=== PATIENT | female | born 1955 | race Caucasian/White ===

== ENCOUNTER 2021-11-07 11:41 | Outpatient (REF) | payer OTHER, SELFPAY ==
[2021-11-07 14:12] LABS: Alanine Aminotransferase 15 U/L (0-31); Anion Gap 13 (12-20); Aspartate Amino Transferase 14 U/L (5-31); Blood Urea Nitrogen 12 mg/dL (9-16); Calcium 9.9 mg/dL (8.4-10.2); Carbon Dioxide 28 mmol/L (22-29); Chloride 104 mmol/L (96-108); Cholesterol 230 mg/dL; Estimated Glomerular Filt Rate 56; Glucose Fasting 111 mg/dL (60-99); HDL Cholesterol 45 mg/dL; LDL Cholesterol Calculated 165 mg/dl; Potassium 4.9 mmol/L (3.3-5.1); Sodium 140 mmol/L (135-145); Triglycerides 104 mg/dL
[2021-11-07 14:34] LABS: Vitamin D 25-OH Total 39.3 ng/mL (>30)
== END 2021-11-07 11:42 | disposition home or self-care (01) ==
LOC: HO.HMGCLDS 11:41
PROVIDERS: PCP Internal Medicine; Visit Provider Internal Medicine
DX: Z00.01 Encounter for general adult medical examination with abnormal findings (principal); M85.852 Other specified disorders of bone density and structure, left thigh; E78.5 Hyperlipidemia, unspecified; I10 Essential (primary) hypertension
CPT/HCPCS: 36415; 80048; 80061; 82306; 84450; 84460

== ENCOUNTER 2022-03-04 09:32 | Outpatient (REF) | payer MEDICARE, OTHER, SELFPAY ==
[2022-03-04 12:46] LABS: Vitamin D 25-OH Total 51.4 ng/mL (>30)
[2022-03-04 12:54] LABS: Alanine Aminotransferase 14 U/L (0-31); Anion Gap 11 (12-20); Aspartate Amino Transferase 13 U/L (5-31); Blood Urea Nitrogen 13 mg/dL (9-16); Calcium 9.2 mg/dL (8.4-10.2); Carbon Dioxide 27 mmol/L (22-29); Chloride 108 mmol/L (96-108); Cholesterol 213 mg/dL; Estimated Glomerular Filt Rate > 60; Glucose Fasting 113 mg/dL (60-99); HDL Cholesterol 38 mg/dL; LDL Cholesterol Calculated 152 mg/dl; Potassium 4.4 mmol/L (3.3-5.1); Sodium 142 mmol/L (135-145); Triglycerides 115 mg/dL
== END 2022-03-04 09:33 | disposition home or self-care (01) ==
LOC: HO.HMGCLDS 09:32
PROVIDERS: PCP Internal Medicine; Visit Provider Internal Medicine
DX: I10 Essential (primary) hypertension (principal); E78.5 Hyperlipidemia, unspecified; M85.852 Other specified disorders of bone density and structure, left thigh
CPT/HCPCS: 36415; 80048; 80061; 82306; 84450; 84460

== ENCOUNTER 2022-09-09 10:47 | Outpatient (REF) | payer MEDICARE, OTHER, SELFPAY ==
[2022-09-09 14:04] LABS: Estimated Average Glucose 123 mg/dL; Hemoglobin A1c % 5.9 %
[2022-09-09 14:13] LABS: Alanine Aminotransferase 23 U/L (0-31); Anion Gap 16 (12-20); Aspartate Amino Transferase 17 U/L (5-31); Blood Urea Nitrogen 12 mg/dL (9-16); Calcium 9.4 mg/dL (8.4-10.2); Carbon Dioxide 26 mmol/L (22-29); Chloride 104 mmol/L (96-108); Cholesterol 243 mg/dL; Estimated Glomerular Filt Rate > 60; Glucose Fasting 115 mg/dL (60-99); HDL Cholesterol 42 mg/dL; LDL Cholesterol Calculated 172 mg/dl; Sodium 142 mmol/L (135-145); Triglycerides 148 mg/dL
[2022-09-09 14:35] LABS: Vitamin D 25-OH Total 58.3 ng/mL (>30)
== END 2022-09-09 10:48 | disposition home or self-care (01) ==
LOC: HO.HMGCLDS 10:47
PROVIDERS: PCP Internal Medicine; Visit Provider Internal Medicine
DX: E78.5 Hyperlipidemia, unspecified (principal); F41.1 Generalized anxiety disorder; I10 Essential (primary) hypertension; M85.852 Other specified disorders of bone density and structure, left thigh; N95.9 Unspecified menopausal and perimenopausal disorder
CPT/HCPCS: 36415; 80048; 80061; 82306; 83036; 84450; 84460

== ENCOUNTER 2022-12-19 09:10 | Outpatient (REF) | payer MEDICARE, OTHER, SELFPAY ==
[2022-12-19 11:45] LABS: Alanine Aminotransferase 16 U/L (0-31); Aspartate Amino Transferase 14 U/L (5-31); Cholesterol 187 mg/dL; Glucose Fasting 124 mg/dL (60-99); HDL Cholesterol 39 mg/dL; LDL Cholesterol Calculated 128 mg/dl; Triglycerides 101 mg/dL
[2022-12-19 11:50] LABS: Estimated Average Glucose 123 mg/dL; Hemoglobin A1c % 5.9 %
== END 2022-12-19 09:11 | disposition home or self-care (01) ==
LOC: HO.HMGCLDS 09:10
PROVIDERS: PCP Internal Medicine; Visit Provider Internal Medicine
DX: E78.5 Hyperlipidemia, unspecified (principal); R73.01 Impaired fasting glucose; I10 Essential (primary) hypertension
CPT/HCPCS: 36415; 80061; 82550; 82947; 83036; 84450; 84460

== ENCOUNTER 2023-02-07 10:16 | Outpatient (REF) | payer MEDICARE, OTHER, SELFPAY ==
--- NOTE | ~2023-02-07 | FL_ITS ---
EXAMINATION: XR FLUOROSCOPY UPPER GI WITH AIR CLINICAL INFORMATION: Epigastric pain COMPARISON: None TECHNIQUE: Routine upper GI air-contrast study was performed in upright and lying position. FINDINGS: On oral administration of thick barium and effervescents granules is normal propagation bolus from the oral cavity through the pharynx, esophagus into stomach without any evidence of obstruction, narrowing or stricture. On placing patient supine and prone lying the course, caliber and peristalsis of the stomach, duodenal bulb and sweep is normal. The mucosal pattern of the stomach and the duodenum is normal. There is no gastroesophageal reflux or hiatal hernia. FLUOROSCOPY TIME: 1.9 minutes DOSE AREA PRODUCT: 27.630 uGy-m2 (microgray-meter squared) FL/FL upper GI w air IMPRESSION: Unremarkable upper GI exam.
== END 2023-02-07 10:17 | disposition home or self-care (01) ==
LOC: HO.XRAY 10:16
PROVIDERS: PCP Internal Medicine; Visit Provider Internal Medicine
DX: R10.13 Epigastric pain (principal)
CPT/HCPCS: 74246

== ENCOUNTER 2023-04-18 09:49 | Outpatient (REF) | payer MEDICARE, OTHER, SELFPAY ==
[2023-04-18 11:49] LABS: MANUAL DIFF FLAG NO
[2023-04-18 11:59] LABS: Basophils Absolute Auto 0.1 X10*3/uL (0.0-0.2); Eosinophils Absolute Auto 0.8 X10*3/uL (0.0-0.4); Eosinophils Percent Auto 11.1 % (0-4); Hemoglobin 14.7 g/dl (12.0-16.0); Imm Gran Abs Auto 0.02 X10*3/uL (0.00-0.03); Imm Gran Pct Auto 0.3 % (0.0-0.4); Lymphocytes Absolute Auto 1.7 X10*3/uL (1.2-4.9); Mean Corpuscular HGB Conc 32.7 g/dl (31.0-35.0); Mean Corpuscular Hemoglobin 27.4 pg (27.0-33.0); Mean Corpuscular Volume 83.8 fL (80.0-98.0); Mean Platelet Volume 10.8 fL (9.4-12.3); Monocytes Absolute Auto 0.7 X10*3/uL (0.1-1.2); Monocytes Percent Auto 10.1 % (2-11); Neutrophils Absolute Auto 3.8 x10*3/uL (2.0-8.3); Neutrophils Percent Auto 53.5 % (45-73); Platelet Count 263 X10*3/uL (160-400); Red Blood Count 5.37 X10*6/uL (4.20-5.50); Red Cell Distribution Width 15.6 % (11.0-16.0)
[2023-04-18 12:22] LABS: Alanine Aminotransferase 16 U/L (0-31); Anion Gap 13 (12-20); Aspartate Amino Transferase 16 U/L (5-31); Blood Urea Nitrogen 12 mg/dL (9-16); Calcium 9.6 mg/dL (8.4-10.2); Carbon Dioxide 28 mmol/L (22-29); Chloride 106 mmol/L (96-108); Cholesterol 194 mg/dL; Estimated Glomerular Filt Rate > 60; Glucose Fasting 110 mg/dL (60-99); HDL Cholesterol 40 mg/dL; LDL Cholesterol Calculated 132 mg/dl; Potassium 4.2 mmol/L (3.3-5.1); Sodium 143 mmol/L (135-145); Triglycerides 113 mg/dL
[2023-04-18 12:41] LABS: Vitamin D 25-OH Total 64.7 ng/mL (>30)
== END 2023-04-18 09:50 | disposition home or self-care (01) ==
LOC: HO.HMGCLDS 09:49
PROVIDERS: PCP Internal Medicine; Visit Provider Internal Medicine
DX: R10.13 Epigastric pain (principal); E78.5 Hyperlipidemia, unspecified; F41.1 Generalized anxiety disorder; I10 Essential (primary) hypertension; J30.89 Other allergic rhinitis; Z72.0 Tobacco use
CPT/HCPCS: 36415; 80048; 80061; 82306; 84450; 84460; 85025

== ENCOUNTER 2023-08-19 14:22 | Outpatient (AMB) | payer MEDICARE, OTHER, SELFPAY ==
[2023-08-19 14:58] VITALS: BP 126/78; PULSE 71; TEMP 36.2; O2SAT 96; BMI 27.9
--- NOTE | 2023-08-19 14:58 | MHC.OFFWIV ---
Intake Vital Signs 08/19/23 14:58 Height 4 ft 11 in Weight 138 lb BMI 27.9 BP 126/78 Blood Pressure Location Rt brachial Position Sitting Pulse 71 Pulse Source Pulse Oximeter Temp 97.2 F Temp Source Temporal Artery Scan Pulse Oximetry (%) 96 Intake Visit Reasons: EST/left side pain Intake Note: pt is here for c/o left side pain Patient Tobacco Use Status: Current everyday Tobacco user Allergies morphine Allergy (Unknown, Verified 08/19/23 15:24) itchy Medication List - Last Reconciled 08/19/23 by Humberto Fuentes MD calcium carbonate (Calcium) 600 mg PO BID cetirizine 10 mg PO DAILY PRN cholecalciferol (vitamin D3) 50 mcg PO DAILY citalopram 20 mg PO DAILY famotidine 40 mg PO DAILY lorazepam 0.5 mg PO DAILY PRN losartan 25 mg PO DAILY rosuvastatin (Crestor) 5 mg PO Q2D 90 days Do you need a note to return to daycare/school/sports/work: Yes HPI EST/left side pain HPI Details 67-year-old female presents to the office for a sick visit. Patient is complaining of back pain which started 2 days ago. Pain is localized on the left side of her ribs. No fall or injury. [facility] Medical History (Updated 08/19/23 @ 15:26 by Humberto Fuentes MD) Impaired fasting glucose Epigastric pain Abnormal fasting glucose Cigarette smoker Cough Osteoarthritis Generalized anxiety disorder Not ready to quit smoking Osteopenia of left femoral neck Environmental and seasonal allergies Dyslipidemia Essential hypertension Surgical History Hx of colonoscopy History of appendectomy History of section History of rotator cuff surgery Family History Father History of heart attack Substance use disorder Mother Brain cancer Brother Lung cancer Maternal Uncle Stomach cancer Brother No problems noted. Brother No problems noted. Brother Substance use disorder Son No problems noted. Daughter No problems noted. Social History Housing: House Alcohol intake: current Patient Tobacco Use Status: Current everyday Tobacco user Tobacco use type: Cigarette Cigarettes Per Day: 10 e-Cigarette/Vaping Use: Never Used service: No Current occupational status: retired Cognitive needs: No Hearing needs: No Vision needs: No Physical Exam Vital Signs: Last Vital Signs Temp 97.2 F 08/19/23 14:58 Pulse 71 08/19/23 14:58 BP 126/78 08/19/23 14:58 Pulse Ox 96 08/19/23 14:58 BMI result Body Mass Index 27.9 Const General: cooperative and healthy appearing Nutritional Appearance: well nourished Orientation/consciousness: patient oriented x3 Limitations: no limitations HEENT Head: Yes normal to inspection Eyes General: appearance normal, both eyes and all related structures Neck Neck: Yes normal visual inspection Chest Chest palpation & inspection: normal palpation of entire chest wall Resp Effort & Inspection: normal respiratory effort Auscultation: clear to auscultation bilaterally Back/Spine/Pelvis Other: Tenderness over the 12th rib. No visible bruising. Neuro General: patient oriented x3 Assessment & Plan Assessment & Plan (1) Lower thoracic back pain: Code(s): M54.6 - Pain in thoracic spine Plan: Meloxicam and cyclobenzaprine called in. Toradol injection provided. Patient was advised rest. Note for work if necessary provided. Once pain symptoms subside, patient should start physical therapy. If symptoms worsen to follow-up here. Orders: Orders AMB Ketorolac Injection Today M54.50 - Low back pain, unspecified Medications: New ketorolac 30 mg IM ONCE 1 mL 0RF M54.50 - Low back pain, unspecified Coding Level of Care Code Est Pt Level 4 (23207) Diagnoses Lower thoracic back pain M54.6
== END 2023-08-19 15:37 | disposition home or self-care (01) ==
PROVIDERS: PCP Internal Medicine; Visit Provider Internal Medicine
DX: M54.6 Pain in thoracic spine (principal)
CPT/HCPCS: 96372; 99214; J1885

== ENCOUNTER 2023-10-27 10:26 | Outpatient (REF) | payer MEDICARE, OTHER, SELFPAY ==
[2023-10-27 13:49] LABS: Estimated Average Glucose 123 mg/dL; Hemoglobin A1c % 5.9 % (<6.0)
[2023-10-27 14:09] LABS: Alanine Aminotransferase 16 U/L (0-31); Anion Gap 13 (12-20); Aspartate Amino Transferase 15 U/L (5-31); Blood Urea Nitrogen 13 mg/dL (9-16); Carbon Dioxide 25 mmol/L (22-29); Chloride 107 mmol/L (96-108); Cholesterol 191 mg/dL (<200); Estimated Glomerular Filt Rate > 60; Glucose Fasting 119 mg/dL (60-99); HDL Cholesterol 44 mg/dL (>40); LDL Cholesterol Calculated 128 mg/dL (<100); Potassium 3.9 mmol/L (3.3-5.1); Sodium 141 mmol/L (135-145); Triglycerides 99 mg/dL (<150)
== END 2023-10-27 10:27 | disposition home or self-care (01) ==
LOC: HO.HMGCLDS 10:26
PROVIDERS: PCP Internal Medicine; Visit Provider Internal Medicine
DX: R73.01 Impaired fasting glucose (principal); E78.5 Hyperlipidemia, unspecified; I10 Essential (primary) hypertension
CPT/HCPCS: 36415; 80048; 80061; 83036; 84450; 84460

== ENCOUNTER 2023-10-28 09:23 | Outpatient (AMB) | payer MEDICARE, OTHER, SELFPAY ==
[2023-10-28 09:43] VITALS: BP 156/88; PULSE 63; O2SAT 95; BMI 28.8
--- NOTE | 2023-10-28 09:43 | MHC.PC.OV ---
Vital Signs 10/28/23 09:43 Height 4 ft 11 in Weight 142 lb 6 oz BMI 28.8 BP 156/88 H Blood Pressure Location Lt brachial Position Sitting Pulse 63 Pulse Source Pulse Oximeter Pulse Oximetry (%) 95 Oxygen Delivery Method Room Air Intake Visit Reasons: Annual Physical Intake Note: pt is here for her Annual PE pt will get flu at [facility] Allergies morphine Allergy (Unknown, Verified 02/26/24 15:22) itchy Medication List - Last Reconciled 10/28/23 by Rosina Martínez MD calcium carbonate (Calcium) 600 mg PO BID cetirizine 10 mg PO DAILY PRN cholecalciferol (vitamin D3) 50 mcg PO DAILY citalopram 20 mg PO DAILY famotidine 40 mg PO DAILY lorazepam 0.5 mg PO DAILY PRN losartan 25 mg PO DAILY rosuvastatin (Crestor) 5 mg PO Q2D 90 days Tobacco use date assessed: 10/28/23 Fall risk assessment: No Falls in past year Last assessed Fall Risk: 10/28/23 Dental Screening Dental Screen Date: 10/28/23 Did you have a dental visit in the last 12 months?: Yes Did you have a dental problem in the last 6 months where you did not have access to dental care?: No Was dental information given to patient?: Patient has dentist HPI Annual Physical HPI Details 67-year-old lady with dyslipidemia, hypertension, osteoarthritis, generalized anxiety disorder, environmental and seasonal allergies, current cigarette smoker and osteopenia, here today for her physical exam. She sees Dr. Chloe Norton for her routine Pap and pelvic exam, done 12/27/2021, she also ordered her screening mammogram, done earlier this year at [facility] which came back within normal limits. A bone density scan was also ordered last year, with results unavailable to me at present time. She is up-to-date with her screening colonoscopy done in [address] Nicole , due for recheck in 2024 [facility] Medical History Impaired fasting glucose Epigastric pain Cigarette smoker Osteoarthritis Generalized anxiety disorder Not ready to quit smoking Osteopenia of left femoral neck Environmental and seasonal allergies Dyslipidemia Essential hypertension Surgical History Hx of colonoscopy History of appendectomy History of section History of rotator cuff surgery Family History Father History of heart attack Substance use disorder Mother Brain cancer Brother Lung cancer Maternal Uncle Stomach cancer Brother No problems noted. Brother No problems noted. Brother Substance use disorder Son No problems noted. Daughter No problems noted. Social History Housing: House Alcohol intake: current Patient Tobacco Use Status: Current everyday Tobacco user Tobacco use type: Cigarette Cigarettes Per Day: 10 e-Cigarette/Vaping Use: Never Used Second Hand Smoke Exposure: No service: No Current occupational status: retired Cognitive needs: No Hearing needs: No Vision needs: No Questionnaire PHQ-9 Over the last 2 weeks, how often have you been bothered by any of the following problems? Depression Screening Interpretation: Negative Depression Screening Done: Yes Source: Developed by Drs. Peng Espinosa, Ivette Holley, Norbert Bella and colleagues, with an educational carlos from [employer]. Thrive Questionnaire Date Thrive assessed: 12/20/22 AUDIT C Alcohol Use Questionnaire (AUDIT-C) 1. How often do you have a drink containing alcohol?: Never Total Score: 0 ITALO-7 AMB Questionnaire ITALO-7 Date ITALO - 7 assessed: 12/20/22 Source: Developed by Drs. Peng Espinosa, Ivette Holley, Norbert Bella and colleagues, with an educational carlos from [employer]. Review of Systems Const Denies fatigue, Denies fever(s) and Denies weakness Eyes Details: sees Dr Horton Denies change in vision ENT Denies dysphagia, Denies dizziness, Denies nasal congestion, Denies nasal discharge and Denies sore throat Card Denies chest pain, Denies lightheadedness, Denies palpitations and Denies dyspnea Resp Denies chest congestion, Denies cough and Denies dyspnea GI Denies melena, Reports bloating, Denies hematochezia, Denies change in bowel habits, Denies dysphagia, Reports excessive flatus, Reports dyspepsia, Denies nausea and Denies vomiting Denies urinary frequency, Denies dysuria, Reports urinary incontinence (With coughing or sneezing) and Denies urinary urgency Musc Reports arthralgias (In the knees), Denies joint swelling and Reports stiffness Neuro Denies dizziness and Denies weakness Psych Reports as per HPI Endo Denies fatigue, Denies polydipsia, Denies polyuria and Denies palpitations Nicholas/Lymph Denies easy bleeding and Denies easy bruising Aller/Immun Reports seasonal rhinorrhea Physical exam (Primary Care) Vital Signs: Last Vital Signs Pulse 63 10/28/23 09:43 BP 156/88 H 10/28/23 09:43 Pulse Ox 95 10/28/23 09:43 Oxygen Delivery Method Room Air 10/28/23 09:43 BMI result Body Mass Index 28.8 Tobacco/Smoking Status: Tobacco use Status Tobacco use date assessed 10/28/23 10/28/23 09:47 Patient Tobacco Use Status Current everyday Tobacco 10/28/23 09:47 Tobacco use type Cigarette 10/28/23 09:47 e-Cigarette/Vaping Use Never Used 10/28/23 09:47 Are you ready to quit: No Depression Screening Interpretation: Negative Thrive Assessment: Date of Thrive Assessment Date Thrive assessed 12/20/22 10/28/23 09:47 Const Other: Alert oriented x3, no acute distress noted Orientation/consciousness: patient oriented x3 HENMT Other: Moist oral mucosa, no oral lesion General nose exam: Normal external nose present and No nasal discharge present Face and sinus: Yes face symmetric Eyes General: appearance normal, both eyes and all related structures Neck Neck: Yes full ROM, Yes no lymphadenopathy and Yes supple Resp Auscultation: clear to auscultation bilaterally Cardio Other: S1-S2 present regular rate and rhythm GI Other: Normal bowel sounds, soft, obese, positive diastasis recti, nontender Back/Spine/Pelvis Back: No back tenderness Skin General skin exam: no rashes or lesions noted Neuro General: patient oriented x3, gait normal, moves all extremities, no focal motor deficits and CN's II-XI intact bilaterally Extrem General: Yes full ROM, Yes no joint enlargement, Yes no pedal edema and Yes normal gait Psych Appearance: grossly normal and well kempt Mental Status: mental status grossly normal Speech and movement: Normal speech and movement present Affect: normal affect Attitude: cooperative Thought process: Normal thought process present Results Reviewed Results Reviewed: Name: Laney Young Age/Sex: 67/F : 1955 Unit#: [id number] Attend Dr: Rosina Martínez MD Re10/27/23 Status: DEP REF Location: [facility] Disch: SPEC : [id number] GABE: 10/27/23 STATUS: COMP REQ : [id number] RECD: 10/27/[address]: Rosina Martínez MD COMP: 10/27/23 ENTERED: 10/27/23 [facility] DR: ORDERED: Met Prof Fast, AST, ALT, Lipid Panel Test Result Flag Reference Site Sodium 141 135-145 mmol/L Potassium 3.9 3.3-5.1 mmol/L CL 107 96-108 mmol/L CO2 25 22-29 mmol/L Gap 13 12-20 BUN 13 9-16 mg/dL Creat 0.86 0.5-1.4 mg/dL EGFR > 60 NOTE: For -[place] individuals, multiply the result by 1.210. Chronic Kidney Disease: Estimated GFR < 60 mL/min/1.73m2 Severe Kidney Disease: Estimated GFR < 15 mL/min/1.73m2 FBS 119 H 60-99 mg/dL A fasting glucose from 100-125 mg/dl is considered impaired (pre-diabetes). CA 9.0 # 8.4-10.2 mg/dL AST (GOT) 15 5-31 U/L ALT (GPT) 16 0-31 U/L Triglyceride 99 <150 mg/dL Desirable Triglyceride: less than 150 mg/dL Borderline High Triglyceride 150-199 mg/dL High Triglyceride: 200-499 mg/dL Very High Triglyceride: greater than or equal to 5OO mg/dL Cholesterol 191 <200 mg/dL Desirable Cholesterol: less than 200 mg/dL Borderline High Cholesterol: 200-239 mg/dL High Cholesterol: greater than 239 mg/dL LDL Calculated 128 H <100 mg/dL Desirable LDL: less than 100 mg/dL Near Optimal/Above Optimal LDL: 110-129 mg/dL Borderline High LDL: 130-159 mg/dL High LDL: 160-189 mg/dL Very High LDL: greater than or equal to 190 mg/dL HDL 44 >40 mg/dL Desirable HDL: greater than 40 mg/dL Note: This HDL assay may give artificially low results in patients with liver disease. Laboratory Tests 04/18/23 09:53 WBC 7.0 Hgb 14.7 Hct 45.0 RDW 15.6 Plt Count 263 Assessment and Plan Assessment & Plan (1) Annual visit for general adult medical examination with abnormal findings: Code(s): Z00.01 - Encounter for general adult medical examination with abnormal findings Plan: . Recent fasting lab results discussed with patient. Continue with regular dental visit every 6 months and regular eye exams, sees Dr. Stefani Horton. Take adequate calcium in diet and vitamin-D 3 at 2000 IU per cap once a day, in addition to weight-bearing exercises to help maintain good muscle tone and weight control. Instructed to do self-breast exam, and continue to get yearly mammogram, ordered by Dr. Norton. , who also does her routine Pap and pelvic exams, currently up-to-date. Patient also had a bone density scan ordered by her OB, will obtain a copy of result. Up-to-date with her screening colonoscopy, done by Dr. Nicole , due again in 2024. Does not want to get COVID booster, has an appointment for her flu shot at the pharmacy already scheduled. Up-to-date with her pneumonia vaccination and shingles vaccine as well as Tdap. (2) Dyslipidemia: Code(s): E78.5 - Hyperlipidemia, unspecified Plan: Reviewed recent fasting lipid profile with patient with levels at goal except for slightly elevated LDL cholesterol . Continue with rosuvastatin 5 mg every other day , in addition to adherence to low-cholesterol diet and regular exercise, at least 30 minutes 3 to 4 times a week. Advised patient to make healthy food choices, eat more fruits, vegetables, whole grains, wild caught fish and low-fat dairy. Limit amount of meat and fried or fatty food products, as well as processed foods and fast foods. Follow-up scheduled with repeat fasting lipid panel in 4 months. (3) Essential hypertension: Code(s): I10 - Essential (primary) hypertension Plan: Blood pressure not at goal of less than 130/80. Will increase dose of losartan to 50 mg taken once a day in a.m., strongly encouraged to stop smoking. Adhere to low-salt diet and get regular exercise. Will have her come back in a week to have her blood pressure checked under new medication dose (4) Osteopenia of left femoral neck: Code(s): M85.852 - Other specified disorders of bone density and structure, left thigh Plan: Will request copy of bone density scan from Dr. Norton's office, advised to do regular weight-bearing exercise, take adequate calcium from dietary sources and take at least 2000 units of vitamin-D 3 supplements, last vitamin-D levels within normal limits. Strongly recommended to stop smoking (5) Generalized anxiety disorder: Code(s): F41.1 - Generalized anxiety disorder Plan: Stable and controlled on citalopram and lorazepam as needed (6) Osteoarthritis: Code(s): M19.90 - Unspecified osteoarthritis, unspecified site Qualifiers: Osteoarthritis location: multiple joints Plan: Advised to do regular stretch exercise, unable to walk for long distances due to pain and stiffness in her hip and knee. Advised to try joining the aquatic exercises at the [facility]. (7) Impaired fasting glucose: Code(s): R73.01 - Impaired fasting glucose Plan: Your fasting blood sugars elevated above 100 mg/dL. Hemoglobin A1c is at 5.9% peer Impaired glucose metabolism O2 at risk for developing diabetes mellitus type 2, as well as heart attack and stroke later on. Lifestyle changes at just weight loss, healthy eating habits, and regular exercise are important, and can prevent the progression to diabetes Orders: Orders Aspartate Amino Transferase 03/01/24 M19.90 - Unspecified osteoarthritis, unspecified site, F41.1 - Generalized anxiety disorder, M85.852 - Other specified disorders of bone density and structure, left thigh, E78.5 - Hyperlipidemia, unspecified, I10 - Essential (primary) hypertension, Z78.0 - Asymptomatic menopausal state Hemoglobin A1c 03/01/24 M19.90 - Unspecified osteoarthritis, unspecified site, F41.1 - Generalized anxiety disorder, M85.852 - Other specified disorders of bone density and structure, left thigh, E78.5 - Hyperlipidemia, unspecified, I10 - Essential (primary) hypertension, Z78.0 - Asymptomatic menopausal state Vitamin D 25-OH Total 03/01/24 M19.90 - Unspecified osteoarthritis, unspecified site, F41.1 - Generalized anxiety disorder, M85.852 - Other specified disorders of bone density and structure, left thigh, E78.5 - Hyperlipidemia, unspecified, I10 - Essential (primary) hypertension, Z78.0 - Asymptomatic menopausal state Lipid Panel 03/01/24 M19.90 - Unspecified osteoarthritis, unspecified site, F41.1 - Generalized anxiety disorder, M85.852 - Other specified disorders of bone density and structure, left thigh, E78.5 - Hyperlipidemia, unspecified, I10 - Essential (primary) hypertension, Z78.0 - Asymptomatic menopausal state Alanine Aminotransferase 03/01/24 M19.90 - Unspecified osteoarthritis, unspecified site, F41.1 - Generalized anxiety disorder, M85.852 - Other specified disorders of bone density and structure, left thigh, E78.5 - Hyperlipidemia, unspecified, I10 - Essential (primary) hypertension, Z78.0 - Asymptomatic menopausal state Basic Metabolic Panel Fasting 03/01/24 M19.90 - Unspecified osteoarthritis, unspecified site, F41.1 - Generalized anxiety disorder, M85.852 - Other specified disorders of bone density and structure, left thigh, E78.5 - Hyperlipidemia, unspecified, I10 - Essential (primary) hypertension, Z78.0 - Asymptomatic menopausal state Medications: Changed From losartan 25 mg PO DAILY 90 tabs 1RF To losartan 50 mg PO DAILY 90 tabs 2RF Refilled lorazepam 0.5 mg PO DAILY PRN 14 tabs 0RF anxiety Coding Level of Care Code Est Pt Prev Care >65y(82136) Diagnoses Annual visit for general adult medical examination with abnormal findings Z00.01 Dyslipidemia E78.5 Essential hypertension I10 Osteopenia of left femoral neck M85.852 Generalized anxiety disorder F41.1 Osteoarthritis M1. Osteoarthritis location: multiple joints Impaired fasting glucose R73.01
== END 2023-10-28 12:07 | disposition home or self-care (01) ==
PROVIDERS: Visit Provider Internal Medicine
DX: Z00.00 Encounter for general adult medical examination without abnormal findings (principal); E78.5 Hyperlipidemia, unspecified; I10 Essential (primary) hypertension; M85.852 Other specified disorders of bone density and structure, left thigh; F41.1 Generalized anxiety disorder; M19.90 Unspecified osteoarthritis, unspecified site; R73.01 Impaired fasting glucose
CPT/HCPCS: 99397

== ENCOUNTER 2024-02-23 11:36 | Outpatient (REF) | payer MEDICARE, OTHER, SELFPAY ==
[2024-02-23 14:11] LABS: Estimated Average Glucose 128 mg/dL; Hemoglobin A1c % 6.1 % (<6.0)
[2024-02-23 14:18] LABS: Alanine Aminotransferase 15 U/L (0-31); Anion Gap 11 (12-20); Aspartate Amino Transferase 13 U/L (5-31); Blood Urea Nitrogen 18 mg/dL (9-16); Calcium 9.7 mg/dL (8.4-10.2); Carbon Dioxide 29 mmol/L (22-29); Chloride 106 mmol/L (96-108); Cholesterol 191 mg/dL (<200); Estimated Glomerular Filt Rate > 60; Glucose Fasting 109 mg/dL (60-99); HDL Cholesterol 44 mg/dL (>40); LDL Cholesterol Calculated 125 mg/dL (<100); Potassium 3.8 mmol/L (3.3-5.1); Sodium 142 mmol/L (135-145); Triglycerides 112 mg/dL (<150)
[2024-02-23 14:32] LABS: Vitamin D 25-OH Total 91.8 ng/mL (>30)
== END 2024-02-23 11:37 | disposition home or self-care (01) ==
LOC: HO.HMGCLDS 11:36
PROVIDERS: PCP Internal Medicine; Visit Provider Internal Medicine
DX: M19.90 Unspecified osteoarthritis, unspecified site (principal); F41.1 Generalized anxiety disorder; M85.852 Other specified disorders of bone density and structure, left thigh; E78.5 Hyperlipidemia, unspecified; I10 Essential (primary) hypertension; Z78.0 Asymptomatic menopausal state
CPT/HCPCS: 36415; 80048; 80061; 82306; 83036; 84450; 84460

== ENCOUNTER 2024-02-26 10:23 | Outpatient (AMB) | payer MEDICARE, OTHER, SELFPAY ==
--- NOTE | 2024-02-26 10:25 | A.OFFPC_ITS ---
Vital Signs 02/26/24 10:39 Height 4 ft 11 in Weight 139 lb BMI 28.1 BP 138/84 Blood Pressure Location Rt brachial Position Sitting Pulse 69 Pulse Source Pulse Oximeter Pulse Oximetry (%) 94 Oxygen Delivery Method Room Air Intake Visit Reasons: 4 Month follow up Intake Note: Pt is here today for 4 Month follow up. Allergies morphine Allergy (Unknown, Verified 02/26/24 15:22) itchy Medication List - Last Reconciled 02/26/24 by Rosina Martínez MD calcium carbonate (Calcium) 600 mg PO BID cetirizine 10 mg PO DAILY PRN cholecalciferol (vitamin D3) 50 mcg PO DAILY citalopram 20 mg PO DAILY lorazepam 0.5 mg PO DAILY PRN losartan 50 mg PO DAILY rosuvastatin 5 mg PO DAILY Tobacco use date assessed: 02/26/24 Fall risk assessment: No Falls in past year Last assessed Fall Risk: 02/26/24 Dental Screening Dental Screen Date: 02/26/24 Did you have a dental visit in the last 12 months?: Yes Did you have a dental problem in the last 6 months where you did not have access to dental care?: No Was dental information given to patient?: Patient has dentist HPI 4 Month follow up HPI Details 68-year-old lady with hypertension hyper lipidemia currently on losartan and rosuvastatin, compliant with taking her medications, here today for her follow-up. However continues to smoke cigarettes, not ready to quit smoking. States that she has gained some weight, not fully compliant with her diet this past few months, and has not been exercising regularly. Her blood pressure today is higher than last check, fasting glucose in the prediabetic range, but fasting lipids are within normal limits on recent labs drawn. . Has generalized anxiety disorder, currently on escitalopram 20 mg daily, which has been helping but has been getting more frequent anxiety attacks specially at night with difficulty sleeping like a refill on her lorazepam which she takes only as needed for acute anxiety. [facility] Medical History Impaired fasting glucose Epigastric pain Cigarette smoker Osteoarthritis Generalized anxiety disorder Not ready to quit smoking Osteopenia of left femoral neck Environmental and seasonal allergies Dyslipidemia Essential hypertension Surgical History Hx of colonoscopy History of appendectomy History of section History of rotator cuff surgery Family History Father History of heart attack Substance use disorder Mother Brain cancer Brother Lung cancer Maternal Uncle Stomach cancer Brother No problems noted. Brother No problems noted. Brother Substance use disorder Son No problems noted. Daughter No problems noted. Social History Housing: House Alcohol intake: current Patient Tobacco Use Status: Current everyday Tobacco user Tobacco use type: Cigarette Cigarettes Per Day: 10 e-Cigarette/Vaping Use: Never Used Second Hand Smoke Exposure: No service: No Current occupational status: retired Cognitive needs: No Hearing needs: No Vision needs: No Questionnaire PHQ-9 Over the last 2 weeks, how often have you been bothered by any of the following problems? 1. Little interest or pleasure in doing things: not at all 2. Feeling down, depressed, or hopeless: not at all 3. Trouble falling or staying asleep, or sleeping too much: more than half the days 4. Feeling tired or having little energy: not at all 5. Poor appetite or overeating: not at all 6. Feeling bad about yourself - or that you are a failure or have let yourself or your family down: not at all 7. Trouble concentrating on things, such as reading the newspaper or watching television: not at all 8. Moving or speaking so slowly that other people could have noticed. Or the opposite - being so fidgety or restless that you have been moving around a lot more than usual: not at all 9. Thoughts that you would be better off or of hurting yourself in some way: not at all Total score: 2 Depression Screening Interpretation: Negative Depression Screening Done: Yes 86852 - PHQ-9 Billing: Yes Source: Developed by Drs. Peng Espinosa, Ivette Holley, Norbert Bella and colleagues, with an educational carlos from [employer]. Thrive Questionnaire Date Thrive assessed: 02/26/24 I am a: Patient What is your living situation today?: I have a steady place to live Within the past 12 months, did the food you bought not last and you didn't have the money to get more?: Never true Within the past 12 months, did you worry whether your food would run out before you got money to buy more?: Never true Do you have trouble paying for medicines?: No Do you have trouble getting transportation to medical appointments?: No Do you have trouble paying your heating and electricity bill?: No Do you have trouble taking care of your child, family member or friend?: No Do you have trouble with day-to-day activities such as bathing, preparing meals, shopping, managing finances, etc.?: No Are you currently unemployed and looking for a job?: No Are you interested in more education?: No THRIVE Score: 0 AUDIT C Alcohol Use Questionnaire (AUDIT-C) 1. How often do you have a drink containing alcohol?: Monthly or less 2. How many drinks containing alcohol do you have on a typical day when you are drinking?: 1 or 2 3. How often do you have six or more drinks on one occasion?: Never Total Score: 1 Score Reviewed/Action Taken: Yes ITALO-7 AMB Questionnaire ITALO-7 Date ITALO - 7 assessed: 02/26/24 Feeling nervous, anxious, or on edge: 1 = Several days Not being able to stop or control worryin = Several days Worrying too much about different things: 1 = Several days Trouble relaxin = Several days Being so restless that it is hard to sit still: 0 = Not at all Becoming easily annoyed or irritable: 0 = Not at all Feeling afraid as if something awful might happen: 0 = Not at all Total ITALO-7 score (0-4 normal; 5-9 mild; 10-14 moderate; 15-21 severe): 4 Source: Developed by Drs. Peng Espinosa, Ivette Holley, Norbert Bella and colleagues, with an educational carlos from [employer]. ITALO-7 Assessment Billing ITALO-7 Assessment Tool: ITALO-7 Assessment 80614 Review of Systems Const Denies fatigue, Denies fever(s) and Denies weakness Eyes Denies change in vision and Reports itchy eyes ENT Denies dysphagia, Denies dizziness, Denies nasal congestion, Denies nasal discharge and Denies sore throat Card Denies chest pain, Denies lightheadedness, Denies palpitations and Denies dyspnea Resp Denies chest congestion, Denies cough and Denies dyspnea GI Denies melena, Reports bloating, Denies hematochezia, Denies change in bowel habits, Denies dysphagia, Reports excessive flatus, Reports dyspepsia, Denies nausea and Denies vomiting Denies urinary frequency, Denies dysuria, Reports urinary incontinence (With coughing or sneezing) and Denies urinary urgency Musc Reports arthralgias (In the knees), Denies joint swelling and Reports stiffness Neuro Denies dizziness and Denies weakness Psych Reports as per HPI Endo Denies fatigue, Denies polydipsia, Denies polyuria and Denies palpitations Nicholas/Lymph Denies easy bleeding and Denies easy bruising Aller/Immun Reports itchy eyes and Reports seasonal rhinorrhea Physical exam (Primary Care) Vital Signs: Last Vital Signs Pulse 69 02/26/24 10:39 BP 138/84 02/26/24 10:39 Pulse Ox 94 02/26/24 10:39 Oxygen Delivery Method Room Air 02/26/24 10:39 BMI result Body Mass Index 28.1 Tobacco/Smoking Status: Tobacco use Status Tobacco use date assessed 02/26/24 02/26/24 10:27 Patient Tobacco Use Status Current everyday Tobacco 02/26/24 10:27 Tobacco use type Cigarette 02/26/24 10:27 e-Cigarette/Vaping Use Never Used 02/26/24 10:27 Are you ready to quit: No Depression Screening Interpretation: Negative Thrive Assessment: Date of Thrive Assessment Date Thrive assessed 12/20/22 02/26/24 10:27 Const Other: Alert oriented x3, no acute distress noted Orientation/consciousness: patient oriented x3 HENMT Other: Moist oral mucosa, no oral lesion General nose exam: Normal external nose present and No nasal discharge present Face and sinus: Yes face symmetric Eyes General: appearance normal, both eyes and all related structures Neck Neck: Yes full ROM, Yes no lymphadenopathy and Yes supple Resp Auscultation: clear to auscultation bilaterally Cardio Other: S1-S2 present regular rate and rhythm GI Other: Normal bowel sounds, soft, obese, positive diastasis recti, nontender Back/Spine/Pelvis Back: No back tenderness Skin General skin exam: no rashes or lesions noted Neuro General: patient oriented x3, gait normal, moves all extremities, no focal motor deficits and CN's II-XI intact bilaterally Extrem General: Yes full ROM, Yes no joint enlargement, Yes no pedal edema and Yes normal gait Psych Appearance: grossly normal and well kempt Mental Status: mental status grossly normal Speech and movement: Normal speech and movement present Affect: normal affect Attitude: cooperative Thought process: Normal thought process present Results Reviewed Results Reviewed: Name: Laney Young Age/Sex: 68/F : 1955 Unit#: [id number] Attend Dr: Rosina Martínez MD Re02/23/24 Status: DEP [facility] Disch: SPEC : [id number] GABE: 02/23/24 STATUS: COMP REQ : [id number] RECD: 02/23/24-[address]: Rosina Martínez MD COMP: 02/23/24 ENTERED: 02/23/[address]: ORDERED: Met Prof Fast, AST, ALT, Lipid Panel, Vitamin D 25-OH Test Result Flag Reference Sodium 142 135-145 mmol/L Potassium 3.8 3.3-5.1 mmol/L CL 106 96-108 mmol/L CO2 29 22-29 mmol/L Gap 11 L 12-20 BUN 18 H 9-16 mg/dL Creat 0.88 0.5-1.4 mg/dL EGFR > 60 NOTE: For -Citizen Of [place] individuals, multiply the result by 1.210. Chronic Kidney Disease: Estimated GFR < 60 mL/min/1.73m2 Severe Kidney Disease: Estimated GFR < 15 mL/min/1.73m2 FBS 109 H 60-99 mg/dL A fasting glucose from 100-125 mg/dl is considered impaired (pre-diabetes). CA 9.7 # 8.4-10.2 mg/dL AST (GOT) 13 5-31 U/L ALT (GPT) 15 0-31 U/L Triglyceride 112 <150 mg/dL Desirable Triglyceride: less than 150 mg/dL Borderline High Triglyceride 150-199 mg/dL High Triglyceride: 200-499 mg/dL Very High Triglyceride: greater than or equal to 5OO mg/dL Cholesterol 191 <200 mg/dL Desirable Cholesterol: less than 200 mg/dL Borderline High Cholesterol: 200-239 mg/dL High Cholesterol: greater than 239 mg/dL LDL Calculated 125 H <100 mg/dL Desirable LDL: less than 100 mg/dL Near Optimal/Above Optimal LDL: 110-129 mg/dL Borderline High LDL: 130-159 mg/dL High LDL: 160-189 mg/dL Very High LDL: greater than or equal to 190 mg/dL HDL 44 >40 mg/dL Desirable HDL: greater than 40 mg/dL Note: This HDL assay may give artificially low results in patients with liver disease. Vit D 25-OH Tot 91.8 >30 ng/mL Health Based Reference Values* < 20 ng/mL Deficient 20-30 ng/mL Insufficient > 30 ng/mL Sufficient Assessment and Plan Assessment & Plan (1) Dyslipidemia: Code(s): E78.5 - Hyperlipidemia, unspecified Plan: Continue rosuvastatin 5 mg once a day. Reinforced importance of following low- cholesterol diet and getting at least 30 minutes of cardio exercise on daily basis (2) Essential hypertension: Code(s): I10 - Essential (primary) hypertension Plan: Blood pressure goal less than 130/80, will continue on losartan 50 mg once a day, and stressed importance of quitting smoking, following low-salt diet and getting regular exercise (3) Impaired fasting glucose: Code(s): R73.01 - Impaired fasting glucose Plan: Your fasting blood sugars elevated above 100 mg/dL. Impaired glucose metabolism increases your risk for developing diabetes mellitus type 2, as well as heart attack and stroke later on. Lifestyle changes at just weight loss, healthy eating habits, and regular exercise are important, and can prevent the progression to diabetes (4) Generalized anxiety disorder: Code(s): F41.1 - Generalized anxiety disorder Plan: Continue with citalopram 50 mg per tablet once a day in a.m., prescription refill sent for lorazepam 0.5 mg to take 1 tablet only as needed for acute anxiety attacks. Orders: Orders Aspartate Amino Transferase 08/01/24 E78.5 - Hyperlipidemia, unspecified, I10 - Essential (primary) hypertension Lipid Panel 08/01/24 E78.5 - Hyperlipidemia, unspecified, I10 - Essential (primary) hypertension Alanine Aminotransferase 08/01/24 E78.5 - Hyperlipidemia, unspecified, I10 - Essential (primary) hypertension Basic Metabolic Panel Fasting 08/01/24 E78.5 - Hyperlipidemia, unspecified, I10 - Essential (primary) hypertension Hemoglobin A1c 08/01/24 R73.01 - Impaired fasting glucose Medications: Refilled lorazepam 0.5 mg PO DAILY PRN 14 tabs 0RF anxiety Coding Level of Care Code Est Pt Level 4 (48688) Diagnoses Dyslipidemia E78.5 Essential hypertension I10 Impaired fasting glucose R73.01 Generalized anxiety disorder F41.1 Additional Codes ITALO-7 Assessment Billing - ITALO-7 Assessment Tool: ITALO-7 Assessment 70054 ([id number])
[2024-02-26 10:39] VITALS: BP 138/84; PULSE 69; O2SAT 94; BMI 28.1
== END 2024-02-26 12:21 | disposition home or self-care (01) ==
PROVIDERS: PCP Internal Medicine; Visit Provider Internal Medicine
DX: E78.5 Hyperlipidemia, unspecified (principal); I10 Essential (primary) hypertension; R73.01 Impaired fasting glucose; F41.1 Generalized anxiety disorder
CPT/HCPCS: 99214

== ENCOUNTER 2024-08-23 10:36 | Outpatient (AMB) | payer MEDICARE, OTHER, SELFPAY ==
[2024-08-23 10:56] VITALS: BP 136/76; PULSE 71; O2SAT 97; BMI 30.5
--- NOTE | 2024-08-23 10:56 | A.OFFPC_ITS ---
Vital Signs 08/23/24 10:56 Height 4 ft 8 in Weight 136 lb BMI 30.5 BP 136/76 Blood Pressure Location Rt brachial Position Sitting Pulse 71 Pulse Source Pulse Oximeter Pulse Oximetry (%) 97 Oxygen Delivery Method Room Air Intake Visit Reasons: Blood pressure f/u Intake Note: Pt is here today for her b/p follow-up Allergies morphine Allergy (Unknown, Verified 08/23/24 11:12) itchy Medication List - Last Reconciled 08/23/24 by Rosina Martínez MD calcium carbonate (Calcium 600) 600 mg PO BID cetirizine 10 mg PO DAILY PRN cholecalciferol (vitamin D3) 50 mcg PO DAILY citalopram 20 mg PO DAILY lorazepam 0.5 mg PO DAILY PRN losartan 50 mg PO DAILY rosuvastatin 5 mg PO DAILY Tobacco use date assessed: 08/23/24 Fall risk assessment: No Falls in past year Last assessed Fall Risk: 08/23/24 Dental Screening Dental Screen Date: 02/26/24 Did you have a dental visit in the last 12 months?: No Did you have a dental problem in the last 6 months where you did not have access to dental care?: No Was dental information given to patient?: Patient has dentist HPI Blood pressure f/u HPI Details 68-year-old lady here today for follow-up on her hypertension. Currently taking losartan 50 mg daily. Still continues to smoke cigarettes, down to half a pack a day, not ready to quit at present time Takes rosuvastatin 5 mg daily but has been experiencing intermittent episodes of muscle pain. Would like to see if she can try decreasing the dosing frequency to every other day. [facility] Medical History Impaired fasting glucose Epigastric pain Cigarette smoker Osteoarthritis Generalized anxiety disorder Not ready to quit smoking Osteopenia of left femoral neck Environmental and seasonal allergies Dyslipidemia Essential hypertension Surgical History Hx of colonoscopy History of appendectomy History of section History of rotator cuff surgery Family History Father History of heart attack Substance use disorder Mother Brain cancer Brother Lung cancer Maternal Uncle Stomach cancer Brother No problems noted. Brother No problems noted. Brother Substance use disorder Son No problems noted. Daughter No problems noted. Social History Housing: House Alcohol intake: current Patient Tobacco Use Status: Current everyday Tobacco user Tobacco use type: Cigarette Cigarettes Per Day: 10 e-Cigarette/Vaping Use: Never Used Second Hand Smoke Exposure: No service: No Current occupational status: retired Cognitive needs: No Hearing needs: No Vision needs: No Questionnaire PHQ-9 Over the last 2 weeks, how often have you been bothered by any of the following problems? 1. Little interest or pleasure in doing things: not at all 2. Feeling down, depressed, or hopeless: not at all 3. Trouble falling or staying asleep, or sleeping too much: several days 4. Feeling tired or having little energy: several days 5. Poor appetite or overeating: not at all 6. Feeling bad about yourself - or that you are a failure or have let yourself or your family down: not at all 7. Trouble concentrating on things, such as reading the newspaper or watching television: not at all 8. Moving or speaking so slowly that other people could have noticed. Or the opposite - being so fidgety or restless that you have been moving around a lot more than usual: not at all 9. Thoughts that you would be better off or of hurting yourself in some way: not at all Total score: 2 Depression Screening Interpretation: Negative Depression Screening Done: Yes Source: Developed by Drs. Peng Espinosa, Ivette Holley, Norbert Bella and colleagues, with an educational carlos from [employer]. Thrive Questionnaire Date Thrive assessed: 08/23/24 I am a: Patient What is your living situation today?: I have a steady place to live Within the past 12 months, did the food you bought not last and you didn't have the money to get more?: Sometimes True Within the past 12 months, did you worry whether your food would run out before you got money to buy more?: I choose not to answer this question Do you have trouble paying for medicines?: No Do you have trouble getting transportation to medical appointments?: No Do you have trouble paying your heating and electricity bill?: No Do you have trouble taking care of your child, family member or friend?: No Do you have trouble with day-to-day activities such as bathing, preparing meals, shopping, managing finances, etc.?: No Are you interested in more education?: No Please select the resources that you would like help with: None THRIVE Score: 1 AUDIT C Alcohol Use Questionnaire (AUDIT-C) 1. How often do you have a drink containing alcohol?: Monthly or less 2. How many drinks containing alcohol do you have on a typical day when you are drinking?: 1 or 2 3. How often do you have six or more drinks on one occasion?: Never Total Score: 1 ITALO-7 AMB Questionnaire ITALO-7 Date ITALO - 7 assessed: 08/23/24 Feeling nervous, anxious, or on edge: 0 = Not at all Not being able to stop or control worryin = Not at all Worrying too much about different things: 0 = Not at all Trouble relaxin = Not at all Being so restless that it is hard to sit still: 0 = Not at all Becoming easily annoyed or irritable: 0 = Not at all Feeling afraid as if something awful might happen: 0 = Not at all Total ITALO-7 score (0-4 normal; 5-9 mild; 10-14 moderate; 15-21 severe): 0 Source: Developed by Drs. Peng Espinosa, Ivette Holley, Norbert Bella and colleagues, with an educational carlos from [employer]. ITALO-7 Assessment Billing ITALO-7 Assessment Tool: ITALO-7 Assessment 92806 Review of Systems Const Denies fatigue, Denies fever(s) and Denies weakness Eyes Denies change in vision ENT Denies dysphagia, Denies dizziness, Denies nasal congestion, Denies nasal discharge and Denies sore throat Card Denies chest pain, Denies lightheadedness, Denies palpitations and Denies dyspnea Resp Denies chest congestion, Denies cough and Denies dyspnea GI Denies melena, Reports bloating, Denies hematochezia, Denies change in bowel habits, Denies dysphagia, Reports excessive flatus, Reports dyspepsia, Denies nausea and Denies vomiting Denies urinary frequency, Denies dysuria, Reports urinary incontinence (With coughing or sneezing) and Denies urinary urgency Musc Reports arthralgias (In the knees), Denies joint swelling and Reports stiffness Neuro Denies dizziness and Denies weakness Psych Reports no additional complaints Endo Denies fatigue, Denies polydipsia, Denies polyuria and Denies palpitations Nicholas/Lymph Denies easy bleeding and Denies easy bruising Aller/Immun Reports seasonal rhinorrhea Physical exam (Primary Care) Vital Signs: Last Vital Signs Pulse 71 08/23/24 10:56 BP 136/76 08/23/24 10:56 Pulse Ox 97 08/23/24 10:56 Oxygen Delivery Method Room Air 08/23/24 10:56 BMI result Body Mass Index 30.5 Tobacco/Smoking Status: Tobacco use Status Tobacco use date assessed 08/23/24 08/23/24 11:04 Patient Tobacco Use Status Current everyday Tobacco 08/23/24 10:57 Tobacco use type Cigarette 08/23/24 10:57 e-Cigarette/Vaping Use Never Used 08/23/24 10:57 PHQ-9: PHQ-9 Score PHQ-9: Total score 2 08/29/24 19:20 Depression Screening Interpretation: Negative Thrive Assessment: Date of Thrive Assessment Date Thrive assessed 08/23/24 08/23/24 10:57 Const Other: Alert oriented x3, no acute distress noted Orientation/consciousness: patient oriented x3 HENMT Other: Moist oral mucosa, no oral lesion General nose exam: Normal external nose present and No nasal discharge present Face and sinus: Yes face symmetric Eyes General: appearance normal, both eyes and all related structures Neck Neck: Yes full ROM, Yes no lymphadenopathy and Yes supple Resp Auscultation: clear to auscultation bilaterally Cardio Other: S1-S2 present regular rate and rhythm GI Other: Normal bowel sounds, soft, obese, positive diastasis recti, nontender Back/Spine/Pelvis Back: No back tenderness Skin General skin exam: no rashes or lesions noted Neuro General: patient oriented x3, gait normal, moves all extremities, no focal motor deficits and CN's II-XI intact bilaterally Extrem General: Yes full ROM, Yes no joint enlargement, Yes no pedal edema and Yes normal gait Psych Appearance: grossly normal and well kempt Mental Status: mental status grossly normal Speech and movement: Normal speech and movement present Affect: normal affect Attitude: cooperative Thought process: Normal thought process present Assessment and Plan Assessment & Plan (1) Dyslipidemia: Code(s): E78.5 - Hyperlipidemia, unspecified (2) Essential hypertension: Code(s): I10 - Essential (primary) hypertension Plan: Blood pressure at goal of less than 130/80. Continue losartan 50 mg daily. Reinforced importance of following a low sodium diet, getting regular exercise, and lowering stress levels. (3) Generalized anxiety disorder: Code(s): F41.1 - Generalized anxiety disorder Plan: Continue citalopram, prescription refill sent for lorazepam 0.5 mg taken once a day only as needed for acute anxiety attacks Medications: Changed From rosuvastatin 5 mg PO DAILY To rosuvastatin 5 mg PO Q2D 45 tabs 4RF 3 months Refilled lorazepam 0.5 mg PO DAILY PRN 14 tabs 0RF anxiety Coding Level of Care Code Est Pt Level 4 (01392) Complex EM visit Add On G2211 Diagnoses Dyslipidemia E78.5 Essential hypertension I10 Generalized anxiety disorder F41.1 Additional Codes ITALO-7 Assessment Billing - ITALO-7 Assessment Tool: ITALO-7 Assessment 57766 ([id number])
== END 2024-08-23 11:54 | disposition home or self-care (01) ==
PROVIDERS: PCP Internal Medicine; Visit Provider Internal Medicine
DX: E78.5 Hyperlipidemia, unspecified (principal); I10 Essential (primary) hypertension; F41.1 Generalized anxiety disorder

== ENCOUNTER → 2024-08-23 10:36 | Outpatient (BNVA) | payer MEDICARE, OTHER, SELFPAY | PROVIDERS: PCP Internal Medicine; Visit Provider Internal Medicine | DX: E78.5 Hyperlipidemia, unspecified (principal); I10 Essential (primary) hypertension; F41.1 Generalized anxiety disorder | CPT/HCPCS: 96127; 99212 ==

== ENCOUNTER 2024-10-20 08:20 | Outpatient (REF) | payer MEDICARE, OTHER, SELFPAY ==
[2024-10-20 10:28] LABS: Estimated Average Glucose 131 mg/dL; Hemoglobin A1C 166.3782 umol/L; Hemoglobin A1c % 6.2 % (<6.0); Total Hemoglobin (HGBA1C) 3774.3228 umol/L
[2024-10-20 10:36] LABS: Alanine Aminotransferase 20 U/L (0-31); Anion Gap 13 (12-20); Aspartate Amino Transferase 19 U/L (5-31); Blood Urea Nitrogen 13 mg/dL (9-16); Calcium 8.8 mg/dL (8.4-10.2); Carbon Dioxide 26 mmol/L (22-29); Chloride 106 mmol/L (96-108); Cholesterol 180 mg/dL (<200); Estimated Glomerular Filt Rate > 60; Glucose Fasting 131 mg/dL (60-99); HDL Cholesterol 39 mg/dL (>40); LDL Cholesterol Calculated 121 mg/dL (<100); Potassium 3.8 mmol/L (3.3-5.1); Sodium 141 mmol/L (135-145); Triglycerides 104 mg/dL (<150)
== END 2024-10-20 08:21 | disposition home or self-care (01) ==
LOC: HO.HMGCLDS 08:20
PROVIDERS: PCP Internal Medicine; Visit Provider Internal Medicine
DX: E78.5 Hyperlipidemia, unspecified (principal); I10 Essential (primary) hypertension; R73.01 Impaired fasting glucose
CPT/HCPCS: 36415; 80048; 80061; 83036; 84450; 84460

== ENCOUNTER 2024-11-01 12:40 | Outpatient (AMB) | payer MEDICARE, OTHER, SELFPAY ==
--- NOTE | 2024-11-01 12:58 | MHC.PC.OV ---
Vital Signs 11/01/24 13:01 Height 4 ft 8 in Weight 135 lb BMI 30.3 BP 120/72 Blood Pressure Location Rt brachial Position Sitting Pulse 60 Pulse Source Pulse Oximeter Pulse Oximetry (%) 95 Oxygen Delivery Method Room Air Intake Visit Reasons: Annual Physical Intake Note: Pt is here today for her PE: last mammogram 01/07/24, colonoscopy 09/27/15 Allergies morphine Allergy (Unknown, Verified 11/01/24 13:29) itchy Medication List - Last Reconciled 11/01/24 by Rosina Martínez MD calcium carbonate (Calcium 600) 600 mg PO BID cetirizine 10 mg PO DAILY PRN cholecalciferol (vitamin D3) 50 mcg PO DAILY citalopram 20 mg PO DAILY lorazepam 0.5 mg PO DAILY PRN losartan 50 mg PO DAILY rosuvastatin 5 mg PO Q2D 3 months Tobacco use date assessed: 11/01/24 Fall risk assessment: No Falls in past year Last assessed Fall Risk: 11/01/24 Dental Screening Dental Screen Date: 11/01/24 Did you have a dental visit in the last 12 months?: Yes Did you have a dental problem in the last 6 months where you did not have access to dental care?: No Was dental information given to patient?: Patient has dentist HPI Annual Physical HPI Details The patient is a 68-year-old female with history of hyperglycemia, hypertension, and hyperlipidemia, here tody for her physical exam. She had recent fasting labs done , with results showing that her latest HBA1c has increased from 5.9 to 6.2 over time, . Her cholesterol is noted to be elevated, with LDL at 121 mg/dL, higher than the desired level below 100 mg/dL. She experiences fatigue but denies anemia, and electrolytes and kidney function tests remain normal. The patient reports seasonal allergies , more pronounced during August and October, possibly due to ragweed pollen. She complains of intermittent stomach pain following food intake, particularly after eating acidic or greasy foods. She has a history of taking famotidine with partial relief. She also reports discomfort in the temporomandibular joint, which has been attributed to potential arthritis in the joint. Vaccination history reveals that she has had shingles and pneumonia vaccines but has denied recent flu and additional COVID-19 vaccinations. She recalls tetanus immunization from 2018, which remains up to date until 2027. The patient is due for a mammogram and possibly a bone density scan, as the last mammogram was in January last year and she does not recall receiving a bone density scan. [facility] Medical History (Updated 11/01/24 @ 13:43 by Rosina Martínez MD) Postprandial epigastric pain Impaired fasting glucose Epigastric pain Cigarette smoker Osteoarthritis Generalized anxiety disorder Not ready to quit smoking Osteopenia of left femoral neck Environmental and seasonal allergies Dyslipidemia Essential hypertension Surgical History Hx of colonoscopy History of appendectomy History of section History of rotator cuff surgery Family History Father History of heart attack Substance use disorder Mother Brain cancer Brother Lung cancer Maternal Uncle Stomach cancer Brother No problems noted. Brother No problems noted. Brother Substance use disorder Son No problems noted. Daughter No problems noted. Social History Housing: House Alcohol intake: current Patient Tobacco Use Status: Current everyday Tobacco user Tobacco use type: Cigarette Cigarettes Per Day: 10 e-Cigarette/Vaping Use: Never Used Second Hand Smoke Exposure: No service: No Current occupational status: retired Cognitive needs: No Hearing needs: No Vision needs: No Questionnaire Thrive Questionnaire Date Thrive assessed: 11/01/24 I am a: Patient What is your living situation today?: I have a steady place to live Within the past 12 months, did the food you bought not last and you didn't have the money to get more?: Sometimes True Within the past 12 months, did you worry whether your food would run out before you got money to buy more?: I choose not to answer this question Do you have trouble paying for medicines?: No Do you have trouble getting transportation to medical appointments?: No Do you have trouble paying your heating and electricity bill?: No Do you have trouble taking care of your child, family member or friend?: No Do you have trouble with day-to-day activities such as bathing, preparing meals, shopping, managing finances, etc.?: No Are you currently unemployed and looking for a job?: No Are you interested in more education?: No Please select the resources that you would like help with: None Currently or been in a relationship where the following occur: No concerns reported THRIVE Score: 1 AUDIT C Alcohol Use Questionnaire (AUDIT-C) 2. How many drinks containing alcohol do you have on a typical day when you are drinking?: 1 or 2 3. How often do you have six or more drinks on one occasion?: Less than monthly Total Score: 1 Review of Systems Const Denies fatigue, Denies fever(s) and Denies weakness Eyes Denies change in vision ENT Denies dysphagia, Denies dizziness, Denies nasal congestion, Denies nasal discharge and Denies sore throat Card Denies chest pain, Denies lightheadedness, Denies palpitations and Denies dyspnea Resp Denies chest congestion, Denies cough and Denies dyspnea GI Denies melena, Reports bloating, Denies hematochezia, Denies change in bowel habits, Denies dysphagia, Reports excessive flatus, Reports dyspepsia, Denies nausea and Denies vomiting Denies urinary frequency, Denies dysuria, Reports urinary incontinence (With coughing or sneezing) and Denies urinary urgency Musc Reports arthralgias (In the knees), Denies joint swelling and Reports stiffness Skin/Breast Denies breast pain, Denies breast mass and Denies rash Neuro Denies dizziness and Denies weakness Psych Reports no additional complaints Endo Denies fatigue, Denies polydipsia, Denies polyuria and Denies palpitations Nicholas/Lymph Denies easy bleeding and Denies easy bruising Aller/Immun Reports seasonal rhinorrhea Physical exam (Primary Care) Vital Signs: Last Vital Signs Pulse 60 11/01/24 13:01 BP 120/72 11/01/24 13:01 Pulse Ox 95 11/01/24 13:01 Oxygen Delivery Method Room Air 11/01/24 13:01 BMI result Body Mass Index 30.3 Tobacco/Smoking Status: Tobacco use Status Tobacco use date assessed 11/01/24 11/01/24 13:02 Patient Tobacco Use Status Current everyday Tobacco 11/01/24 12:58 Tobacco use type Cigarette 11/01/24 12:58 e-Cigarette/Vaping Use Never Used 11/01/24 12:58 Thrive Assessment: Date of Thrive Assessment Date Thrive assessed 11/01/24 11/01/24 13:02 Currently or been in a relationship where the following occur: No concerns reported Const Other: Alert oriented x3, no acute distress noted Orientation/consciousness: patient oriented x3 HENMT Other: Moist oral mucosa, no oral lesion General nose exam: Normal external nose present and No nasal discharge present Face and sinus: Yes face symmetric Eyes General: appearance normal, both eyes and all related structures Neck Neck: Yes full ROM, Yes no lymphadenopathy and Yes supple Chest Chest palpation & inspection: normal inspection of the chest Breast/axilla palpation: normal palpation of the breasts Resp Auscultation: clear to auscultation bilaterally Cardio Other: S1-S2 present regular rate and rhythm GI Other: Normal bowel sounds, soft, obese, positive diastasis recti, nontender General: Yes deferred Back/Spine/Pelvis Back: No back tenderness Skin General skin exam: no rashes or lesions noted Neuro General: patient oriented x3, gait normal, moves all extremities, no focal motor deficits and CN's II-XI intact bilaterally Extrem General: Yes full ROM, Yes no joint enlargement, Yes no pedal edema and Yes normal gait Psych Appearance: grossly normal and well kempt Mental Status: mental status grossly normal Speech and movement: Normal speech and movement present Affect: normal affect Attitude: cooperative Thought process: Normal thought process present Results Reviewed Results Reviewed: Name: Laney Young Age/Sex: 68/F : 1955 Unit#: [id number] Attend Dr: Rosina Martínez MD Re10/20/24 Status: DEP REF Location: [facility] Disch: SPEC : [id number] GABE: 10/20/24 STATUS: COMP REQ : [id number] RECD: 10/20/[address]: Rosina Martínez MD COMP: 10/20/24 ENTERED: 10/20/[address]: ORDERED: Met Prof Fast, AST, ALT, Lipid Panel Test Result Flag Reference Sodium 141 135-145 mmol/L Potassium 3.8 3.3-5.1 mmol/L CL 106 96-108 mmol/L CO2 26 22-29 mmol/L Gap 13 12-20 BUN 13 9-16 mg/dL Creat 0.83 0.5-1.4 mg/dL eGFR > 60 Chronic Kidney Disease: Estimated GFR < 60 mL/min/1.73m2 Severe Kidney Disease: Estimated GFR < 15 mL/min/1.73m2 FBS 131 H 60-99 mg/dL A fasting glucose of 126 mg/dl or greater on more than one occasion is considered diagnostic of diabetes. CA 8.8 # 8.4-10.2 mg/dL AST (GOT) 19 5-31 U/L ALT (GPT) 20 0-31 U/L Triglyceride 104 <150 mg/dL Desirable Triglyceride: less than 150 mg/dL Borderline High Triglyceride 150-199 mg/dL High Triglyceride: 200-499 mg/dL Very High Triglyceride: greater than or equal to 5OO mg/dL Cholesterol 180 <200 mg/dL Desirable Cholesterol: less than 200 mg/dL Borderline High Cholesterol: 200-239 mg/dL High Cholesterol: greater than 239 mg/dL LDL Calculated 121 H <100 mg/dL Desirable LDL: less than 100 mg/dL Near Optimal/Above Optimal LDL: 110-129 mg/dL Borderline High LDL: 130-159 mg/dL High LDL: 160-189 mg/dL Very High LDL: greater than or equal to 190 mg/dL HDL 39 L >40 mg/dL Desirable HDL: greater than 40 mg/dL Laboratory Tests 10/27/23 02/23/24 10/20/24 10:30 11:45 08:28 Creatinine 0.83 Estimat Average Glucose 123 131 Hemoglobin A1c % 5.9 6.1 H 6.2 H Coding Level of Care Code Est Pt Prev Care >65y(56500) Diagnoses Postprandial epigastric pain R10.13 Encounter for screening for malignant neoplasm of colon Z12.11 Essential hypertension I10 Dyslipidemia E78.5 Osteopenia of left femoral neck M85.852 Generalized anxiety disorder F41.1 Impaired fasting glucose R73.01 Annual visit for general adult medical examination with abnormal findings Z00.01 Assessment & Plan Assessment & Plan (1) Postprandial epigastric pain: Code(s): R10.13 - Epigastric pain Category: Medical (2) Encounter for screening for malignant neoplasm of colon: Code(s): Z12.11 - Encounter for screening for malignant neoplasm of colon (3) Essential hypertension: Code(s): I10 - Essential (primary) hypertension Category: Medical (4) Dyslipidemia: Code(s): E78.5 - Hyperlipidemia, unspecified Category: Medical (5) Osteopenia of left femoral neck: Code(s): M85.852 - Other specified disorders of bone density and structure, left thigh Category: Medical (6) Generalized anxiety disorder: Code(s): F41.1 - Generalized anxiety disorder Category: Medical (7) Impaired fasting glucose: Code(s): R73.01 - Impaired fasting glucose Category: Medical (8) Annual visit for general adult medical examination with abnormal findings: Code(s): Z00.01 - Encounter for general adult medical examination with abnormal findings Plan - Shingles and Pneumonia vaccines up to date. - Tetanus vaccine updated in 2018. - Lacks recent Influenza and COVID-19 vaccinations. - Scheduled for a mammogram in January. - Bone density scanning needs to be confirmed and conducted. - Advised to take flu shots, particularly highlighting the timing for effectiveness. - Hyperglycemia: Monitor blood glucose levels with lifestyle adjustments and encourage dietary modifications. - Hypertension: Continue current management with ongoing monitoring. - Hyperlipidemia: Encourage daily intake of rosuvastatin to lower LDL levels. - Allergic Rhinitis: Plan involves ongoing use of cetirizine at night to manage symptoms. - Stomach Pain: Initiate a daily regimen of famotidine for at least two weeks to assess symptom control; refer to Gastroenterology for evaluation of potential upper GI issues including endoscopy if necessary. - Temporomandibular Joint Disorder: Offer optional consultation if TMJ symptoms persist. - Tobacco Use: Discuss potential cessation programs and reinforce. - Vaccination: Recommend completing influenza and COVID-19 vaccinations. - Health Maintenance: Schedule mammogram and confirm bone density evaluation. I discussed with the patient the importance of strict lifestyle adherence in controlling her blood glucose and lipid levels, emphasizing dietary modifications. We discussed routine laboratory monitoring and follow-up for her metabolic conditions. For stomach discomfort, we deliberated the use of famotidine and possible diagnostic procedures if symptoms persist. We conversed about her ongoing allergic rhinitis requiring continued antihistamine therapy with cetirizine. Regarding immunizations, I emphasized the importance of influenza and COVID-19 vaccinations in her age group. I advised her about the necessity of preventive measures, including regular mammograms and bone density studies, as well as monitoring for any new symptoms related to her persistent conditions. She acknowledged the current tobacco use, and I offered guidance regarding cessation resources, not interested in quitting at present time.. Follow-up was discussed, and I will reassess her condition in three months with the repetition of lab work before her next visit. - Continue monitoring blood sugar levels and follow dietary recommendations. - Use famotidine daily for stomach issues and avoid triggering foods. - Take rosuvastatin every day to control cholesterol levels. - Use cetirizine at night to manage allergy symptoms. - Plan to obtain flu and COVID-19 vaccinations. - Follow up with mammogram and confirm bone density scan scheduling. - Consider tobacco cessation support and resources. - Schedule follow-up appointment in January for reassessment. Patient was informed and verbally consented to the use of an ambient scribe for clinic note documentation during this visit. Orders: Orders Basic Metabolic Panel Fasting 01/29/25 E78.5 - Hyperlipidemia, unspecified, F41.1 - Generalized anxiety disorder, I10 - Essential (primary) hypertension, M85.852 - Other specified disorders of bone density and structure, left thigh, R73.01 - Impaired fasting glucose Hemoglobin A1c 01/29/25 E78.5 - Hyperlipidemia, unspecified, F41.1 - Generalized anxiety disorder, I10 - Essential (primary) hypertension, M85.852 - Other specified disorders of bone density and structure, left thigh, R73.01 - Impaired fasting glucose Alanine Aminotransferase 01/29/25 E78.5 - Hyperlipidemia, unspecified, F41.1 - Generalized anxiety disorder, I10 - Essential (primary) hypertension, M85.852 - Other specified disorders of bone density and structure, left thigh, R73.01 - Impaired fasting glucose Aspartate Amino Transferase 01/29/25 E78.5 - Hyperlipidemia, unspecified, F41.1 - Generalized anxiety disorder, I10 - Essential (primary) hypertension, M85.852 - Other specified disorders of bone density and structure, left thigh, R73.01 - Impaired fasting glucose Lipid Panel 01/29/25 E78.5 - Hyperlipidemia, unspecified, F41.1 - Generalized anxiety disorder, I10 - Essential (primary) hypertension, M85.852 - Other specified disorders of bone density and structure, left thigh, R73.01 - Impaired fasting glucose Vitamin D 25-OH Total 01/29/25 E78.5 - Hyperlipidemia, unspecified, F41.1 - Generalized anxiety disorder, I10 - Essential (primary) hypertension, M85.852 - Other specified disorders of bone density and structure, left thigh, R73.01 - Impaired fasting glucose Referrals Gastroenterology Referral R10.13 - Epigastric pain, Z12.11 - Encounter for screening for malignant neoplasm of colon Medications: Changed From rosuvastatin 5 mg PO Q2D 3 months 45 tabs 4RF To rosuvastatin 5 mg PO DAILY 90 tabs 4RF 3 months
[2024-11-01 13:01] VITALS: BP 120/72; PULSE 60; O2SAT 95; BMI 30.3
== END 2024-11-01 13:52 | disposition home or self-care (01) ==
PROVIDERS: PCP Internal Medicine; Visit Provider Internal Medicine
DX: Z00.00 Encounter for general adult medical examination without abnormal findings (principal); R10.13 Epigastric pain; Z12.11 Encounter for screening for malignant neoplasm of colon; I10 Essential (primary) hypertension; E78.5 Hyperlipidemia, unspecified; M85.852 Other specified disorders of bone density and structure, left thigh; F41.1 Generalized anxiety disorder; R73.01 Impaired fasting glucose

== ENCOUNTER → 2024-11-01 12:40 | Outpatient (BNVA) | payer MEDICARE, OTHER, SELFPAY | PROVIDERS: PCP Internal Medicine; Visit Provider Internal Medicine | DX: Z00.01 Encounter for general adult medical examination with abnormal findings (principal); R10.13 Epigastric pain; I10 Essential (primary) hypertension; E78.5 Hyperlipidemia, unspecified; M85.852 Other specified disorders of bone density and structure, left thigh; F41.1 Generalized anxiety disorder; R73.01 Impaired fasting glucose | CPT/HCPCS: 99397 ==

== ENCOUNTER 2025-01-31 08:43 | Outpatient (REF) | payer MEDICARE, OTHER, SELFPAY ==
[2025-01-31 10:34] LABS: Estimated Average Glucose 131 mg/dL; Hemoglobin A1C 162.6602 umol/L; Hemoglobin A1c % 6.2 % (<6.0); Total Hemoglobin (HGBA1C) 3695.1189 umol/L
[2025-01-31 11:13] LABS: Alanine Aminotransferase 15 U/L (0-31); Anion Gap 13 (12-20); Aspartate Amino Transferase 16 U/L (5-31); Blood Urea Nitrogen 12 mg/dL (9-16); Calcium 9.1 mg/dL (8.4-10.2); Carbon Dioxide 26 mmol/L (22-29); Chloride 110 mmol/L (96-108); Cholesterol 171 mg/dL (<200); Estimated Glomerular Filt Rate > 60; Glucose Fasting 105 mg/dL (60-99); HDL Cholesterol 44 mg/dL (>40); LDL Cholesterol Calculated 114 mg/dL (<100); Potassium 4.4 mmol/L (3.3-5.1); Sodium 145 mmol/L (135-145); Triglycerides 69 mg/dL (<150)
[2025-01-31 11:16] LABS: Vitamin D 25-OH Total 75.6 ng/mL (>30)
== END 2025-01-31 08:44 | disposition home or self-care (01) ==
LOC: HO.HMGCLDS 08:43
PROVIDERS: PCP Internal Medicine; Visit Provider Internal Medicine
DX: R73.01 Impaired fasting glucose (principal); F41.1 Generalized anxiety disorder; M85.852 Other specified disorders of bone density and structure, left thigh; E78.5 Hyperlipidemia, unspecified; I10 Essential (primary) hypertension
CPT/HCPCS: 36415; 80048; 80061; 82306; 83036; 84450; 84460

== ENCOUNTER 2025-02-02 11:19 | Outpatient (AMB) | payer MEDICARE, OTHER, SELFPAY ==
--- NOTE | 2025-02-02 11:23 | MHC.PC.OV ---
Vital Signs 02/02/25 11:26 Height 4 ft 8 in Weight 137 lb BMI 30.7 BP 120/64 Blood Pressure Location Lt brachial Position Sitting Respiration 16 Pulse 78 Pulse Source Pulse Oximeter Temp 97.8 F Temp Source Oral Pulse Oximetry (%) 95 Oxygen Delivery Method Room Air Intake Visit Reasons: 3 months f/up Intake Note: Pt is here today for her 3mo. f/u Allergies morphine Allergy (Unknown, Verified 02/02/25 11:53) itchy Medication List - Last Reconciled 02/02/25 by Rosina Martínez MD calcium carbonate (Calcium 600) 600 mg PO BID cetirizine 10 mg PO DAILY PRN cholecalciferol (vitamin D3) 50 mcg PO DAILY citalopram 20 mg PO DAILY lorazepam 0.5 mg PO DAILY PRN losartan 50 mg PO DAILY rosuvastatin 5 mg PO Q2D Tobacco use date assessed: 02/02/25 Fall risk assessment: No Falls in past year Last assessed Fall Risk: 02/02/25 Dental Screening Dental Screen Date: 02/02/25 Did you have a dental visit in the last 12 months?: Yes Did you have a dental problem in the last 6 months where you did not have access to dental care?: No Was dental information given to patient?: Patient has dentist HPI 3 months f/up HPI Details 69 year-old female with history of hyperglycemia, hypertension, and hyperlipidemia, here tody for her follow-up. She has been compliant with taking her medications, tries to follow recommended diet, but states that she has been very sedentary this past few months. Recent fasting labs done which showed hemoglobin A1c at 6.2%, fasting lipids are within normal limits, as well as vitamin-D level and serum electrolytes and renal function. Complains of a nagging cough, which usually occurs in the morning when she wakes up. She continues to smoke cigarettes at least half a pack a day. [facility] Medical History Postprandial epigastric pain Impaired fasting glucose Epigastric pain Cigarette smoker Osteoarthritis Generalized anxiety disorder Not ready to quit smoking Osteopenia of left femoral neck Environmental and seasonal allergies Dyslipidemia Essential hypertension Surgical History Hx of colonoscopy History of appendectomy History of section History of rotator cuff surgery Family History Father History of heart attack Substance use disorder Mother Brain cancer Brother Lung cancer Maternal Uncle Stomach cancer Brother No problems noted. Brother No problems noted. Brother Substance use disorder Son No problems noted. Daughter No problems noted. Social History Housing: House Alcohol intake: current Patient Tobacco Use Status: Current everyday Tobacco user Tobacco use type: Cigarette Cigarettes Per Day: 10 e-Cigarette/Vaping Use: Never Used Second Hand Smoke Exposure: No service: No Current occupational status: retired Cognitive needs: No Hearing needs: No Vision needs: No Questionnaire PHQ-9 Over the last 2 weeks, how often have you been bothered by any of the following problems? 1. Little interest or pleasure in doing things: not at all 2. Feeling down, depressed, or hopeless: not at all 3. Trouble falling or staying asleep, or sleeping too much: not at all 4. Feeling tired or having little energy: more than half the days 5. Poor appetite or overeating: not at all 6. Feeling bad about yourself - or that you are a failure or have let yourself or your family down: not at all 7. Trouble concentrating on things, such as reading the newspaper or watching television: not at all 8. Moving or speaking so slowly that other people could have noticed. Or the opposite - being so fidgety or restless that you have been moving around a lot more than usual: not at all 9. Thoughts that you would be better off or of hurting yourself in some way: not at all Total score: 2 Depression Screening Interpretation: Negative Depression Screening Done: Yes 55067 - PHQ-9 Billing: Yes Source: Developed by Drs. Peng Espinosa, Ivette Holley, Norbert Bella and colleagues, with an educational carlos from [employer]. Thrive Questionnaire Date Thrive assessed: 02/02/25 I am a: Patient What is your living situation today?: I have a steady place to live Within the past 12 months, did the food you bought not last and you didn't have the money to get more?: Sometimes True Within the past 12 months, did you worry whether your food would run out before you got money to buy more?: Sometimes True Do you have trouble paying for medicines?: No Do you have trouble getting transportation to medical appointments?: No Do you have trouble paying your heating and electricity bill?: Yes Do you have trouble taking care of your child, family member or friend?: No Do you have trouble with day-to-day activities such as bathing, preparing meals, shopping, managing finances, etc.?: No Are you currently unemployed and looking for a job?: No Are you interested in more education?: No Please select the resources that you would like help with: None Currently or been in a relationship where the following occur: No concerns reported THRIVE Score: 3 AUDIT C Alcohol Use Questionnaire (AUDIT-C) 1. How often do you have a drink containing alcohol?: Monthly or less 2. How many drinks containing alcohol do you have on a typical day when you are drinking?: 1 or 2 3. How often do you have six or more drinks on one occasion?: Never Total Score: 1 ITALO-7 AMB Questionnaire ITALO-7 Date ITALO - 7 assessed: 02/02/25 Feeling nervous, anxious, or on edge: 0 = Not at all Not being able to stop or control worryin = Not at all Worrying too much about different things: 0 = Not at all Trouble relaxin = Not at all Being so restless that it is hard to sit still: 0 = Not at all Becoming easily annoyed or irritable: 0 = Not at all Feeling afraid as if something awful might happen: 0 = Not at all Total ITALO-7 score (0-4 normal; 5-9 mild; 10-14 moderate; 15-21 severe): 0 Source: Developed by Drs. Peng Espinosa, Ivette Holley, Norbert Bella and colleagues, with an educational carlos from [employer]. ITALO-7 Assessment Billing ITALO-7 Assessment Tool: ITALO-7 Assessment 69029 Review of Systems Const Denies fatigue, Denies fever(s) and Denies weakness Eyes Denies change in vision ENT Denies dysphagia, Denies dizziness, Denies nasal congestion, Denies nasal discharge and Denies sore throat Card Denies chest pain, Denies lightheadedness, Denies palpitations and Denies dyspnea Resp Denies chest congestion, Reports cough (Frequent, usually in the mornings) and Denies dyspnea GI Denies melena, Reports bloating, Denies hematochezia, Denies change in bowel habits, Denies dysphagia, Reports excessive flatus, Reports dyspepsia, Denies nausea and Denies vomiting Denies urinary frequency, Denies dysuria, Reports urinary incontinence (With coughing or sneezing) and Denies urinary urgency Musc Reports arthralgias (In the knees), Denies joint swelling and Reports stiffness Skin/Breast Denies breast pain, Denies breast mass and Denies rash Neuro Denies dizziness and Denies weakness Psych Reports no additional complaints Endo Denies fatigue, Denies polydipsia, Denies polyuria and Denies palpitations Nicholas/Lymph Denies easy bleeding and Denies easy bruising Aller/Immun Reports seasonal rhinorrhea Physical exam (Primary Care) Vital Signs: Last Vital Signs Temp 97.8 F 02/02/25 11:26 Pulse 78 02/02/25 11:26 Resp 16 02/02/25 11:26 BP 120/64 02/02/25 11:26 Pulse Ox 95 02/02/25 11:26 Oxygen Delivery Method Room Air 02/02/25 11:26 BMI result Body Mass Index 30.7 Tobacco/Smoking Status: Tobacco use Status Tobacco use date assessed 02/02/25 02/02/25 11:29 Patient Tobacco Use Status Current everyday Tobacco 02/02/25 11:29 Tobacco use type Cigarette 02/02/25 11:29 e-Cigarette/Vaping Use Never Used 02/02/25 11:29 PHQ-9: PHQ-9 Score PHQ-9: Total score 2 02/02/25 11:54 Depression Screening Interpretation: Negative Thrive Assessment: Date of Thrive Assessment Date Thrive assessed 02/02/25 02/02/25 11:29 Currently or been in a relationship where the following occur: No concerns reported Const Other: Alert oriented x3, no acute distress noted Orientation/consciousness: patient oriented x3 HENMT Other: Moist oral mucosa, no oral lesion General nose exam: Normal external nose present and No nasal discharge present Face and sinus: Yes face symmetric Eyes General: appearance normal, both eyes and all related structures Neck Neck: Yes full ROM, Yes no lymphadenopathy and Yes supple Chest Chest palpation & inspection: normal inspection of the chest Breast/axilla palpation: normal palpation of the breasts Resp Auscultation: clear to auscultation bilaterally Cardio Other: S1-S2 present regular rate and rhythm GI Other: Normal bowel sounds, soft, obese, positive diastasis recti, nontender General: Yes deferred Back/Spine/Pelvis Back: No back tenderness Skin General skin exam: no rashes or lesions noted Neuro General: patient oriented x3, gait normal, moves all extremities, no focal motor deficits and CN's II-XI intact bilaterally Extrem General: Yes full ROM, Yes no joint enlargement, Yes no pedal edema and Yes normal gait Psych Appearance: grossly normal and well kempt Mental Status: mental status grossly normal Speech and movement: Normal speech and movement present Affect: normal affect Attitude: cooperative Thought process: Normal thought process present Results Reviewed Results Reviewed: Name: Laney Young Age/Sex: 69/F : 1955 Unit#: [id number] Attend Dr: Rosina Martínez MD Re01/31/25 Status: DEP [facility] Disch: SPEC : [id number] GABE: 01/31/2550 STATUS: COMP REQ : [id number] RECD: 01/31/25-[address]: Rosina Martínez MD COMP: 01/31/25-1116 ENTERED: 01/31/25-[address] [facility] [address]: ORDERED: Met Prof Fast, AST, ALT, Lipid Panel, Vitamin D 25-OH Test Result Flag Reference Sodium 145 135-145 mmol/L Potassium 4.4 3.3-5.1 mmol/L CL 110 H 96-108 mmol/L CO2 26 22-29 mmol/L Gap 13 12-20 BUN 12 9-16 mg/dL Creat 0.79 0.5-1.4 mg/dL eGFR > 60 Chronic Kidney Disease: Estimated GFR < 60 mL/min/1.73m2 Severe Kidney Disease: Estimated GFR < 15 mL/min/1.73m2 FBS 105 H 60-99 mg/dL A fasting glucose from 100-125 mg/dl is considered impaired (pre-diabetes). CA 9.1 8.4-10.2 mg/dL AST (GOT) 16 5-31 U/L ALT (GPT) 15 0-31 U/L Triglyceride 69 <150 mg/dL Desirable Triglyceride: less than 150 mg/dL Borderline High Triglyceride 150-199 mg/dL High Triglyceride: 200-499 mg/dL Very High Triglyceride: greater than or equal to 5OO mg/dL Cholesterol 171 <200 mg/dL Desirable Cholesterol: less than 200 mg/dL Borderline High Cholesterol: 200-239 mg/dL High Cholesterol: greater than 239 mg/dL LDL Calculated 114 H <100 mg/dL Desirable LDL: less than 100 mg/dL Near Optimal/Above Optimal LDL: 110-129 mg/dL Borderline High LDL: 130-159 mg/dL High LDL: 160-189 mg/dL Very High LDL: greater than or equal to 190 mg/dL HDL 44 >40 mg/dL Desirable HDL: greater than 40 mg/dL Note: This HDL assay may give artificially low results in patients with liver disease. Vit D 25-OH Tot 75.6 >30 ng/mL Health Based Reference Values* < 20 ng/mL Deficient 20-30 ng/mL Insufficient > 30 ng/mL Sufficient *Delano GONZALEZ. N Engl J Med. 2007;357:266-280 Care must be taken in interpreting Vitamin D results from different laboratories and methodologies. Published data demonstrated that results from patients undergoing hemodialysis may show a negative bias when tested with various automated 25-OH vitamin D assays when compared to LC-MS/MS. When testing samples from patients whose predominant form of Vitamin D is Vitamin D2, such as patients receiving Vitamin D2 supplementation, results that are subtherapeutic should be confirmed with another method such as LC-MS/MS. Laboratory Tests 01/31/25 08:57 Estimat Average Glucose 131 Hemoglobin A1c % 6.2 H Coding Level of Care Code Est Pt Level 4 (76016) Complex EM visit Add On G2211 Diagnoses Chronic cough R05.3 Cough type: chronic Cigarette smoker F17.210 Impaired fasting glucose R73.01 Dyslipidemia E78.5 Essential hypertension I10 Generalized anxiety disorder F41.1 Additional Codes PHQ-9 - 49926 - PHQ-9 Billing: Yes ([id number]) ITALO-7 Assessment Billing - ITALO-7 Assessment Tool: ITALO-7 Assessment 61249 ([id number]) Assessment & Plan Assessment & Plan (1) Cough: Code(s): R05.9 - Cough, unspecified Category: Medical Qualifiers: Cough type: chronic Qualified Code(s): R05.3 - Chronic cough Plan: Patient strongly advised to quit smoking, refer to respiratory clinic for pulmonary function test (2) Cigarette smoker: Code(s): F17.210 - Nicotine dependence, cigarettes, uncomplicated Category: Social Hx Plan: Reinforced importance of stopping smoking, patient however not ready to quit at present time. (3) Impaired fasting glucose: Code(s): R73.01 - Impaired fasting glucose Category: Medical Plan: Your previous fasting blood sugars were elevated above 100 mg/dL. Impaired glucose metabolism increases the risk for developing diabetes mellitus type 2, as well as heart attack and stroke later on. Lifestyle changes that promotes weight loss, healthy eating habits, and regular exercise are important, and can prevent the progression to diabetes (4) Dyslipidemia: Code(s): E78.5 - Hyperlipidemia, unspecified Category: Medical Plan: Fasting lipid panel ordered today, currently on rosuvastatin taken 5 mg 1 tablet twice a week (5) Essential hypertension: Code(s): I10 - Essential (primary) hypertension Category: Medical Plan: Blood pressure at goal of less than 130/80. Continue with current medication. Reinforced importance of following a low sodium diet, getting regular exercise, and lowering stress levels. (6) Generalized anxiety disorder: Code(s): F41.1 - Generalized anxiety disorder Category: Medical Plan: Takes lorazepam as needed for acute attacks of anxiety., refill sent Orders: Orders PFT pulmonary function test 02/02/25 F17.210 - Nicotine dependence, cigarettes, uncomplicated, R05.9 - Cough, unspecified Medications: Refilled lorazepam 0.5 mg PO DAILY PRN 14 tabs 0RF anxiety
[2025-02-02 11:26] VITALS: BP 120/64; PULSE 78; RESP 16; TEMP 36.6; O2SAT 95; BMI 30.7
== END 2025-02-02 12:45 | disposition home or self-care (01) ==
PROVIDERS: PCP Internal Medicine; Visit Provider Internal Medicine
DX: R05.3 Chronic cough (principal); F17.210 Nicotine dependence, cigarettes, uncomplicated; R73.01 Impaired fasting glucose; E78.5 Hyperlipidemia, unspecified; I10 Essential (primary) hypertension; F41.1 Generalized anxiety disorder

== ENCOUNTER → 2025-02-02 11:19 | Outpatient (BNVA) | payer MEDICARE, OTHER, SELFPAY | PROVIDERS: PCP Internal Medicine; Visit Provider Internal Medicine | DX: R05.3 Chronic cough (principal); R73.01 Impaired fasting glucose; E78.5 Hyperlipidemia, unspecified; F41.1 Generalized anxiety disorder; I10 Essential (primary) hypertension; F17.210 Nicotine dependence, cigarettes, uncomplicated; Z71.6 Tobacco abuse counseling | CPT/HCPCS: 96127; 99212 ==

== ENCOUNTER 2025-03-10 09:41 | Outpatient (REF) | payer MEDICARE, OTHER, SELFPAY ==
--- NOTE | 2025-03-10 09:46 | PFT_ITS ---
Flows: FEV1: 66 % of predicted at 1.14 L FVC: 90 % of predicted at 1.95 L FEV1/FVC: 58 % Bronchodilator response: Present Volumes: Total lung capacity: 95 % of predicted at 3.58 L Residual volume: 127 % of predicted at 1.85 L Slow vital capacity: 73 % of predicted at 1.72 L Expiratory reserve volume: 56 % of predicted at 0.29 L Diffusion capacity: Mildly decreased, corrects to normal after adjustment for alveolar ventilation. Impression: Moderate obstructive ventilatory defect with positive bronchodilator response. Increased residual volume suggests air trapping. Decreased diffusion capacity suggests emphysema. MTDD
[2025-03-10 10:41] VITALS: PULSE 80; O2SAT 96
== END 2025-03-10 09:42 | disposition home or self-care (01) ==
LOC: HO.RESP 09:41
PROVIDERS: PCP Internal Medicine; Visit Provider Internal Medicine
DX: R05.9 Cough, unspecified (principal); F17.210 Nicotine dependence, cigarettes, uncomplicated
CPT/HCPCS: 94010; 94640; 94727; 94729

== ENCOUNTER → 2025-03-10 09:46 | Outpatient (BNV) | payer MEDICARE, OTHER, SELFPAY | PROVIDERS: PCP Internal Medicine; Visit Provider Internal Medicine Pulmonary Disease | DX: R05.9 Cough, unspecified (principal); F17.210 Nicotine dependence, cigarettes, uncomplicated | CPT/HCPCS: 94060 ==

== ENCOUNTER 2025-06-22 13:47 | Outpatient (AMB) | payer MEDICARE, OTHER, SELFPAY ==
--- NOTE | 2025-06-22 13:50 | MHC.OFFVIS ---
Vital Signs 06/22/25 13:51 Height 4 ft 8 in Weight 136 lb BMI 30.5 BP 126/7 L Blood Pressure Location Lt brachial Position Sitting Pulse 74 Oxygen Delivery Method Room Air Intake Visit Reasons: Epigastric Pain Intake Note: Patient new consult for Epigastric Pain Patient cc: middle esophagus discomfort, acid reflux ??, diarrhea on and off, and denies any other GI issues. 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 Referred by PCP for pre colonoscopy screening and further evaluation of epigastric pain. This will be Laney's 2nd colonoscopy. Shares her 1st was completed at [facility] and reported as normal. She experiences alternating stool consistency, with type 5 being most common, and type 7 diarrhea occurring frequently after meals, especially in the morning. No blood in stools reported Reports experiencing off-and-on epigastric pain for the last seven months. The pain occurs after meals but can also manifest before eating. She describes the pain as sore upon touch, with variable severity that eventually settles on its own. The patient denies any reflux but occasionally feels nauseated after certain foods, such as yogurt or pancakes, without any vomiting. She has a history of chronic stomach aches since childhood and attributes some symptoms to potential ulcer. Patient denies: fever/chills, appetite changes, pyrosis, regurgitation, dysphasia, unintentional wt loss or melena/hematochezia. Social hx: -occasional ETOH use -smokes marijuana daily, denies other recreational drug use -current 1/2 ppd smoker - family hx as below -denies personal hx of CA -tolerated anesthesia in the past without difficulty. [facility] Medical History (Updated 06/22/25 @ 15:40 by Mara Gutierrez CNP) Frequent loose stools COPD (chronic obstructive pulmonary disease) with emphysema Postprandial epigastric pain Impaired fasting glucose Epigastric pain Cigarette smoker Osteoarthritis Generalized anxiety disorder Not ready to quit smoking Osteopenia of left femoral neck Environmental and seasonal allergies Dyslipidemia Essential hypertension Surgical History Hx of colonoscopy History of appendectomy History of section History of rotator cuff surgery Family History (Updated 06/22/25 @ 14:18 by Mara Gutierrez CNP) Father History of heart attack Substance use disorder Mother Brain cancer Brother Lung cancer Maternal Uncle Stomach cancer Brother No problems noted. Brother No problems noted. Brother Substance use disorder Son No problems noted. Daughter No problems noted. Maternal Aunt Colon cancer Social History Housing: House Alcohol intake: current Patient Tobacco Use Status: Current everyday Tobacco user Tobacco use type: Cigarette Cigarettes Per Day: 10 e-Cigarette/Vaping Use: Never Used Second Hand Smoke Exposure: No service: No Current occupational status: retired Cognitive needs: No Hearing needs: No Vision needs: No Review of Systems Const Reports as per HPI ENT Reports as per HPI Card Reports as per HPI Resp Reports as per HPI GI Reports as per HPI Reports as per HPI Physical Exam Vital Signs: Last Vital Signs Pulse 74 06/22/25 13:51 BP 126/7 L 06/22/25 13:51 Oxygen Delivery Method Room Air 06/22/25 13:51 BMI result Body Mass Index 30.5 Const General: healthy appearing, no acute distress and well developed Nutritional Appearance: average body habitus Orientation/consciousness: patient oriented x3 HEENT Head: Yes normal to inspection, Yes normocephalic and Yes atraumatic Face and sinus: Yes normal facial exam Eyes General: appearance normal, both eyes and all related structures Neck Neck: Yes normal visual inspection Resp Effort & Inspection: normal respiratory effort, able to speak in complete sentences, no tracheal deviation and symmetric chest movement Auscultation: clear to auscultation bilaterally Cardio Jugular venous distension: no JVD Rate: regular rate Rhythm: regular rhythm Heart sounds: S1 normal heart sound present, S2 normal heart sound present, no gallops and no murmurs GI Inspection: Yes normal to inspection and No distended Palpation (GI): Soft to palpation, not firm, nontender and No hepatosplenomegaly present Auscultation: normal bowel sounds Neuro General: patient oriented x3 Gait exam (Neuro): Normal gait present Psych Appearance: grossly normal Mental Status: mental status grossly normal Speech and movement: Normal speech and movement present Affect: normal affect Attitude: cooperative Thought process: Normal thought process present Thought content: Normal thought content present Insight: Good insight present (Psych) Judgement: Good judgement present (Psych) Assessment & Plan Assessment & Plan (1) Postprandial epigastric pain: Code(s): R10.13 - Epigastric pain Category: Medical Plan: Pain localized to epigastric, often postprandial; hx of chronic stomach aches; risk factors include tobacco use and possible dietary triggers. No relief with famotidine. No NSAID use. Family hx of GI malignancy. Need to r/o PUD, gastritis, and H. pylori. Additional Tests: -Upper endoscopy (EGD) to evaluate for ulcer, gastritis, malignancy. -H. pylori serology. -CBC (r/o anemia) Medications:Sucralfate PO PRN for pain (instructed to separate from other PO meds by 2h, and from antacids by 30min). Education on GERD prevention : -Advised against heavy meals; encouraged small, frequent meals instead of large ones. - Instructed to remain upright for 2?3 hours after eating. - Advised to avoid late-night meals, spicy foods, caffeine, alcohol, known dietary triggers, and tight-fitting clothing. -smoking cessation (Contemplation stage) - Emphasis placed on gradual implementation of lifestyle changes to improve adherence and symptom control. (2) Frequent loose stools: Code(s): R19.7 - Diarrhea, unspecified Category: Medical Qualifiers: Diarrhea type: unspecified type Qualified Code(s): R19.7 - Diarrhea, unspecified Plan: Postprandial diarrhea, alternating stool consistency, no cholecystectomy, possible biliary etiology. Additional Tests: -Abdominal US (gallbladder, liver, pancreas). -Stool studies (fecal fat, WBC). -Celiac serology. -Inflammatory markers (r/o IBD). Medications: Continue current regimen unless new findings. Reinforced lifestyle modifications to promote regularity: -higher fiber diet as tolerated, examples provided -adequate hydration with water -150 minutes of moderate intensity exercise per week Plan Follow-up in 8 weeks or sooner as needed Time: I spent a total of 40 minutes on the date of encounter which includes: Preparing to see the patient (reviewed previous documentation, test results and medical history) Performing a medically appropriate exam and/or evaluation Ordering medications, tests, and procedures Documenting clinical information in the health record Orders: Orders C Reactive Protein Today R19.7 - Diarrhea, unspecified Calprotectin, Fecal Today R19.7 - Diarrhea, unspecified US abdomen complete Today R10.13 - Epigastric pain Transglutaminase IgA Today R10.13 - Epigastric pain, R19.7 - Diarrhea, unspecified Complete Blood Count Auto Diff Today R10.13 - Epigastric pain, R19.7 - Diarrhea, unspecified Lipase Today R10.13 - Epigastric pain, R19.7 - Diarrhea, unspecified H pylori Ag Stool Today R10.13 - Epigastric pain, R19.7 - Diarrhea, unspecified Fecal Fat Qualitative Today R10.13 - Epigastric pain, R19.7 - Diarrhea, unspecified Leukocytes Stool Qualitative Today R10.13 - Epigastric pain, R19.7 - Diarrhea, unspecified Medications: New sucralfate Take on tablet two times daily as needed. Take an empty stomach. Avoid antacids within 30 minutes. 1 g PO BID 90 tabs 0RF Coding Level of Care Code New Pt New Pt Level 4 (54489) Patient Type New Diagnoses Postprandial epigastric pain R10.13 Diarrhea, unspecified type R19.7 Diarrhea type: unspecified type
[2025-06-22 13:51] VITALS: BP 126/7; PULSE 74; BMI 30.5
== END 2025-06-22 14:43 | disposition home or self-care (01) ==
LOC: HO.HGI 13:48
PROVIDERS: PCP Internal Medicine; Visit Provider Nurse Practitioner Family
DX: R10.13 Epigastric pain (principal); R19.7 Diarrhea, unspecified
CPT/HCPCS: 99204

== ENCOUNTER → 2025-06-22 13:47 | Outpatient (BNVA) | payer MEDICARE, OTHER, SELFPAY | PROVIDERS: PCP Internal Medicine; Visit Provider Nurse Practitioner Family | DX: R10.13 Epigastric pain (principal); R19.7 Diarrhea, unspecified | CPT/HCPCS: 99202 ==

== ENCOUNTER 2025-08-04 09:24 | Outpatient (REF) | payer MEDICARE, OTHER, SELFPAY ==
--- NOTE | ~2025-08-04 | US_ITS ---
EXAMINATION: US ABDOMEN COMPLETE CLINICAL INFORMATION: Epigastric pain.. COMPARISON: None available. TECHNIQUE: Real-time ultrasound of the abdomen using grayscale technique. FINDINGS: PANCREAS: No peripancreatic fluid collection or gross main pancreatic ductal dilatation in the body pancreas. ABDOMINAL AORTA: The proximal, mid, and distal segments are normal in caliber. INFERIOR VENA CAVA: Visualized portions are normal. LIVER: Liver measures 16 cm by the technologist. Coarse echotexture. There is an 8 mm hypoechoic structure in the periphery of the left hepatic lobe without flow on color Doppler interrogation. No intrahepatic biliary ductal dilatation. . GALLBLADDER: Gallbladder is nondistended. There is a comet tail artifact in the gallbladder wall. There is a 6 mm isoechoic abnormality in the gallbladder neck without flow on color Doppler interrogation. No pericholecystic fluid collection or gallbladder wall thickening. COMMON BILE DUCT: 5 mm.. RIGHT KIDNEY: 9 cm. Normal echotexture. Normal renal cortical thickness. No hydronephrosis. No gross solid or cystic lesion detected by the technologist.. LEFT KIDNEY: 10 cm. Normal echotexture. Normal renal cortical thickness. No hydronephrosis. There is a 10 mm exophytic hypoechoic structure in the midportion without flow on color Doppler interrogation.. SPLEEN: 8 cm. No gross mass.. FREE FLUID: None. US/US abdomen complete IMPRESSION: Hepatomegaly, mild and probable status post steatosis. 8 mm hypoechoic lesion, left hepatic lobe. This is not fully evaluated. 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 Probable 8 mm polyp versus cholelithiasis. 10 mm cystic lesion, left kidney. No ascites. No hydronephrosis. Electronically signed by: Shoaib Tomlinson MD 08/04/2025 10:17 AM EDT
[2025-08-04 13:21] LABS: MANUAL DIFF FLAG NO
[2025-08-04 13:31] LABS: Hematocrit 44.0 % (37.0-47.0); Hemoglobin 14.1 g/dl (12.0-16.0); Imm Gran Abs Auto 0.03 X10*3/uL (0.00-0.03); Imm Gran Pct Auto 0.4 % (0.0-0.4); Lymphocytes Absolute Auto 1.4 X10*3/uL (1.2-4.9); Mean Corpuscular HGB Conc 32.0 g/dl (31.0-35.0); Mean Corpuscular Hemoglobin 27.4 pg (27.0-33.0); Mean Corpuscular Volume 85.6 fL (80.0-98.0); NRBC Abs Auto 0.000 X10*3/uL (0.0-0.012); NRBC Pct Auto 0.0 /100WBC (0.0-0.2); Platelet Count 266 X10*3/uL (160-400); Red Blood Count 5.14 X10*6/uL (4.20-5.50); White Blood Count 8.5 X10*3/uL (4.8-10.8)
[2025-08-04 13:42] LABS: Lipase 42 U/L (8-78)
== END 2025-08-04 09:25 | disposition home or self-care (01) ==
LOC: HO.HMGCX 09:24
PROVIDERS: PCP Internal Medicine; Visit Provider Nurse Practitioner Family
DX: R10.13 Epigastric pain (principal); R19.7 Diarrhea, unspecified
CPT/HCPCS: 36415; 76700; 83690; 85025; 86140; 86364

== ENCOUNTER → 2025-08-04 09:40 | Outpatient (BNV) | payer MEDICARE, OTHER, SELFPAY | PROVIDERS: PCP Internal Medicine; Visit Provider Radiology Diagnostic Radiology | DX: R16.0 Hepatomegaly, not elsewhere classified (principal) | CPT/HCPCS: 76700 ==

== ENCOUNTER 2025-08-12 10:58 | Outpatient (REF) | payer MEDICARE, OTHER, SELFPAY ==
[2025-08-12 13:11] LABS: Leukocytes Stool Qualitative FEW: < 2/OIF (NEGATIVE)
[2025-08-19 19:28] LABS: Calprotectin, Fecal 22 mcg/g
== END 2025-08-12 10:59 | disposition home or self-care (01) ==
LOC: HO.LNP 10:58
PROVIDERS: Visit Provider Nurse Practitioner Family
DX: R19.7 Diarrhea, unspecified (principal); R10.13 Epigastric pain
CPT/HCPCS: 82705; 83993; 87338; 89055

== ENCOUNTER 2025-08-17 10:42 | Outpatient (REF) | payer MEDICARE, OTHER, SELFPAY ==
--- NOTE | ~2025-08-17 | XR_ITS ---
EXAMINATION: XR RIBS, LEFT CLINICAL INFORMATION: R07.89 - Other chest pain COMPARISON: July 07, 2018 TECHNIQUE: PA chest x-ray and 3 views of the left ribs were obtained. FINDINGS: Lungs are clear. Heart size is within normal limits. No pneumothorax is detected. There are healed fractures involving the anterolateral fifth and sixth ribs and far anterior seventh rib on the left No acute fracture is identified. XR/XR ribs LT min 3V w CXR1V IMPRESSION: There are healed fractures involving the left fifth, sixth, seventh ribs. No acute fracture is evident. Electronically signed by: Mynor De Jesus MD 08/17/2025 03:27 PM EDT RP
== END 2025-08-17 10:43 | disposition home or self-care (01) ==
LOC: HO.HMGCX 10:42
PROVIDERS: PCP Internal Medicine; Visit Provider Physician Assistant
DX: R07.81 Pleurodynia (principal); K76.9 Liver disease, unspecified; N28.1 Cyst of kidney, acquired; R10.13 Epigastric pain; R19.7 Diarrhea, unspecified; K82.4 Cholesterolosis of gallbladder; F17.210 Nicotine dependence, cigarettes, uncomplicated; Z79.899 Other long term (current) drug therapy; Z71.6 Tobacco abuse counseling; W18.00XA Striking against unspecified object with subsequent fall, initial encounter
CPT/HCPCS: 71101; 99212

== ENCOUNTER 2025-08-17 10:42 | Outpatient (AMB) | payer MEDICARE, OTHER, SELFPAY ==
--- NOTE | 2025-08-17 10:55 | MHC.OFFVIS ---
Vital Signs 08/17/25 10:57 Height 4 ft 8 in Weight 133 lb BMI 29.8 BP 122/74 Blood Pressure Location Lt brachial Position Sitting Pulse 74 Pulse Oximetry (%) 96 Oxygen Delivery Method Room Air Intake Visit Reasons: follow up Intake Note: Patient follow up for Frequent loose stools and epigastric pain, stool, lab/US results. Patient cc: GERD on and off, diarrhea, a lot of flame on er throat, denies any other GI issues for today viist, Independent Marketing Consultant Required: No Accompanied by: Self / Same As Patient Allergies morphine Allergy (Unknown, Verified 08/17/25 14:34) itchy HPI HPI follow up: Details: Patient is a 69-year-old female with PMH of COPD, HTN, HLD, prediabetes. Laney presents for f/u on chronic diarrhea and intermittent epigastric pain. Since last visit on 06-22-25, pt continues to experience loose stools, mostly in AM with urgency, occasionally progressing to diarrhea especially after meals. Stool consistency varies (from mushy to loose). No hematochezia, melena, or significant weight loss reported. Epigastric pain remains intermittent, sometimes postprandial; partial relief with PRN sucralfate, which pt is using < BID. No increase in abdominal pain severity, no new systemic symptoms (e.g., fever, n/v) aside from chills/fever acutely after fall (now resolved). No dysphagia or regurgitation. Hydration and fiber intake improved per pt report. New issue: persistent phlegm/soreness in throat post-fall, current nicotine dependence and allergies. No primary care/urgent visit yet for evaluation of rib pain. No hospitalizations or GI flares since last visit. [facility] Medical History (Updated 08/17/25 @ 15:48 by Mara Gutierrez CNP) Rib pain on left side Renal cyst Epigastric pain Gallbladder polyp Liver lesion, left lobe Frequent loose stools COPD (chronic obstructive pulmonary disease) with emphysema Postprandial epigastric pain Impaired fasting glucose Cigarette smoker Osteoarthritis Generalized anxiety disorder Not ready to quit smoking Osteopenia of left femoral neck Environmental and seasonal allergies Dyslipidemia Essential hypertension Surgical History Hx of colonoscopy History of appendectomy History of section History of rotator cuff surgery Family History Father History of heart attack Substance use disorder Mother Brain cancer Brother Lung cancer Maternal Uncle Stomach cancer Brother No problems noted. Brother No problems noted. Brother Substance use disorder Son No problems noted. Daughter No problems noted. Maternal Aunt Colon cancer Social History Housing: House Alcohol intake: current Patient Tobacco Use Status: Current everyday Tobacco user Tobacco use type: Cigarette Cigarettes Per Day: 10 e-Cigarette/Vaping Use: Never Used Second Hand Smoke Exposure: No service: No Current occupational status: retired Cognitive needs: No Hearing needs: No Vision needs: No Review of Systems Const Reports as per HPI ENT Reports as per HPI Card Reports as per HPI Resp Reports as per HPI GI Reports as per HPI Reports as per HPI Physical Exam Vital Signs: Last Vital Signs Pulse 74 08/17/25 10:57 BP 122/74 08/17/25 10:57 Pulse Ox 96 08/17/25 10:57 Oxygen Delivery Method Room Air 08/17/25 10:57 BMI result Body Mass Index 29.8 Const General: healthy appearing, no acute distress and well developed Nutritional Appearance: average body habitus Orientation/consciousness: patient oriented x3 HEENT Head: Yes normal to inspection, Yes normocephalic and Yes atraumatic Face and sinus: Yes normal facial exam Eyes General: appearance normal, both eyes and all related structures Neck Neck: Yes normal visual inspection Resp Effort & Inspection: normal respiratory effort, able to speak in complete sentences, no tracheal deviation and symmetric chest movement Cardio Jugular venous distension: no JVD GI Inspection: Yes normal to inspection, No distended and Yes obesity Palpation (GI): Soft to palpation, not firm, nontender and No hepatosplenomegaly present Auscultation: normal bowel sounds Neuro General: patient oriented x3 Gait exam (Neuro): Normal gait present Psych Appearance: grossly normal Mental Status: mental status grossly normal Speech and movement: Normal speech and movement present Affect: normal affect Attitude: cooperative Thought process: Normal thought process present Thought content: Normal thought content present Insight: Good insight present (Psych) Judgement: Good judgement present (Psych) Results Reviewed Results Reviewed: Ordering Physician: Mara Gutierrez CNP Date of Service: 08/04/25 Procedure(s): US abdomen complete Accession Number(s): [id number] cc: Rosina Martínez MD; Mara Gutierrez CNP~ Reason for Exam: R10.13 - Epigastric pain EXAMINATION: US ABDOMEN COMPLETE CLINICAL INFORMATION: Epigastric pain.. COMPARISON: None available. TECHNIQUE: Real-time ultrasound of the abdomen using grayscale technique. FINDINGS: PANCREAS: No peripancreatic fluid collection or gross main pancreatic ductal dilatation in the body pancreas. ABDOMINAL AORTA: The proximal, mid, and distal segments are normal in caliber. INFERIOR VENA CAVA: Visualized portions are normal. LIVER: Liver measures 16 cm by the technologist. Coarse echotexture. There is an 8 mm hypoechoic structure in the periphery of the left hepatic lobe without flow on color Doppler interrogation. No intrahepatic biliary ductal dilatation. . GALLBLADDER: Gallbladder is nondistended. There is a comet tail artifact in the gallbladder wall. There is a 6 mm isoechoic abnormality in the gallbladder neck without flow on color Doppler interrogation. No pericholecystic fluid collection or gallbladder wall thickening. COMMON BILE DUCT: 5 mm.. RIGHT KIDNEY: 9 cm. Normal echotexture. Normal renal cortical thickness. No hydronephrosis. No gross solid or cystic lesion detected by the technologist.. LEFT KIDNEY: 10 cm. Normal echotexture. Normal renal cortical thickness. No hydronephrosis. There is a 10 mm exophytic hypoechoic structure in the midportion without flow on color Doppler interrogation.. SPLEEN: 8 cm. No gross mass.. FREE FLUID: None. US/US abdomen complete IMPRESSION: Hepatomegaly, mild and probable status post steatosis. 8 mm hypoechoic lesion, left hepatic lobe. This is not fully evaluated. 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 Probable 8 mm polyp versus cholelithiasis. 10 mm cystic lesion, left kidney. No ascites. No hydronephrosis Assessment & Plan Assessment & Plan (1) Epigastric pain: Code(s): R10.13 - Epigastric pain Category: Medical Plan: Intermittent pain persists, some PRN response to sucralfate. Biliary etiology possible. US shows polyp vs stone Additional Testing: -MRI abdominal -Additional imaging to clarify gallbladder findings as needed Medications: Continue PRN sucralfate for symptom control Lifestyle Recommendations:Maintain heart-healthy diet; avoid fatty foods, alcohol minimization advised if relevant Referrals / Coordination of Care:Pending imaging; possible referral to surgery if surgical gallbladder pathology confirmed Follow-Up Plan:Review imaging findings as soon as available; expedited visit if cholecystectomy indicated (2) Frequent loose stools: Code(s): R19.7 - Diarrhea, unspecified Category: Medical Qualifiers: Diarrhea type: unspecified type Qualified Code(s): R19.7 - Diarrhea, unspecified Plan: Continuing symptoms; no acute deterioration, chronicity supports inflammatory over infectious etiology. Presence of stool WBCs, elevated blood inflammatory markers, longitudinal symptoms, family history of Crohn?s. Additional Testing: -GI Pathogen Panel + C. diff (pending; ordered today) -Colonoscopy + biopsy (pending, not yet scheduled; to confirm/rule out IBD) -Upper endoscopy (pending, to aid evaluation for upper GI IBD/alternate causes) Medications: Continue sucralfate PRN for epigastric pain (pt reports partial efficacy, using < BID) Hold on new therapies pending definitive diagnosis Lifestyle Recommendations: Continue dietary fiber (emphasize fruits, vegetables, beans, nuts), optimize hydration (increase water intake, reduce waylon kia) Handouts: Dietary fiber instructions provided previously Referrals / Coordination of Care: None at present; to consider GI, nutrition, or surgical referral post-definitive dx Follow-Up Plan: F/u in 3 mo, or sooner if significant change/worsening Review all pending labs, imaging, and endoscopic results at next visit (3) Liver lesion, left lobe: Code(s): K76.9 - Liver disease, unspecified Category: Medical Plan: Asymptomatic, lesion detected incidentally on US. Liver lesion/hepatomegaly of unclear significance, requires further w/u to distinguish cyst, hemiagnioma, adenoma, or other etiology. Additional Testing:MRI as above Medications:None indicated Lifestyle Recommendations:Maintain overall healthy lifestyle for hepatic and cardiac protection (diet, weight management, avoid hepatotoxins) Referrals / Coordination of Care:None pending initial imaging workup; hepatology if concerning findings Follow-Up Plan:Review imaging results at next visit/sooner if abnormal (4) Renal cyst: Code(s): N28.1 - Cyst of kidney, acquired Category: Medical Plan: Incidentally discovered, asymptomatic, appears benign, no comparative imaging. Additional Testing:Consider surveillance w/ PCP, no urgent nephrology/urology input Medications:None indicated Lifestyle Recommendations:Routine health maintenance Referrals / Coordination of Care:Encourage PCP discussion for consideration of serial imaging Follow-Up Plan:No GI-directed follow-up unless symptomatic (5) Rib pain on left side: Code(s): R07.81 - Pleurodynia Category: Medical Plan: Ongoing rib pain after fall, increased throat phlegm, no dysphagia, no known rib fx eval. Needs PCP/urgent care eval to r/o rib fx/pneumonia; phlegm likely multifactorial (smoking, allergies, deconditioning post-fall). VSS. Additional Testing:Recommend CXR if persistent pain or shallow breathing Medications:None prescribed for this issue at present Lifestyle Recommendations:Smoking cessation strongly encouraged, maintain deep breathing, pursue allergy relief if needed Referrals / Coordination of Care:Advised prompt follow-up w/ PCP or urgent care for chest/rib evaluation Follow-Up Plan:Pt to self-monitor, seek urgent care for worsening pain, dyspnea, or fever Plan Differential: IBD (Crohn?s/UC), bile acid diarrhea, IBS, chronic infection (less likely), cholelithiasis/polyp, neoplasm (gallbladder/liver), medication effect, malabsorption, post-cholecystic syndrome. 1640: Spoke with Laney this afternoon to confirm order of MRI and need for labs prior to imaging. Also advise we trial a PPI for epigastric symptoms. She is agreeable to plan and will complete labs once MRI is scheduled. Rx sent to preferred pharmacy. Shares she sought care for CXR and awaiting results. Follow-up in 3 months (after imaging) or sooner as needed. Time: I spent a total of 40 minutes on the date of encounter which includes: Preparing to see the patient (reviewed previous documentation, test results and medical history) Performing a medically appropriate exam and/or evaluation Ordering medications, tests, and procedures Documenting clinical information in the health record Orders: Orders GI Panel Today R19.7 - Diarrhea, unspecified CDiff Gene PCR Today R19.7 - Diarrhea, unspecified MR abdomen wo/w con Today K76.9 - Liver disease, unspecified, K82.4 - Cholesterolosis of gallbladder Basic Metabolic Panel Today K76.9 - Liver disease, unspecified, K82.4 - Cholesterolosis of gallbladder Medications: New omeprazole Take one tablet daily. Best taken on an empty, 30 minutes before eating. 20 mg PO DAILY 90 caps 1RF Coding Level of Care Code Established Pt Est Pt Level 5 (53294) Patient Type Established Diagnoses Epigastric pain R10.13 Diarrhea, unspecified type R19.7 Diarrhea type: unspecified type Liver lesion, left lobe K76.9 Renal cyst N28.1 Rib pain on left side R07.81
[2025-08-17 10:57] VITALS: BP 122/74; PULSE 74; O2SAT 96; BMI 29.8
== END 2025-08-17 11:47 | disposition home or self-care (01) ==
LOC: HO.HGI 10:43
PROVIDERS: PCP Internal Medicine; Visit Provider Nurse Practitioner Family
DX: R10.13 Epigastric pain (principal); R19.7 Diarrhea, unspecified; K76.9 Liver disease, unspecified; N28.1 Cyst of kidney, acquired; R07.81 Pleurodynia
CPT/HCPCS: 99215

== ENCOUNTER 2025-08-17 14:22 | Outpatient (AMB) | payer MEDICARE, OTHER, SELFPAY ==
[2025-08-17 14:30] VITALS: BP 128/64; PULSE 79; TEMP 36.7; O2SAT 97; BMI 29.8
--- NOTE | 2025-08-17 14:30 | AM.OFFWIN_ITS ---
Intake Vital Signs 08/17/25 14:30 Height 4 ft 8 in Weight 133 lb BMI 29.8 BP 128/64 Blood Pressure Location Rt brachial Position Sitting Pulse 79 Pulse Source Pulse Oximeter Temp 98.0 F Temp Source Oral Pulse Oximetry (%) 97 Oxygen Delivery Method Room Air Intake Visit Reasons: EP-lt side body hurt from a fall Intake Note: pt presents with left sided rib pain under breast after a fall 5 days ago Patient Tobacco Use Status: Current everyday Tobacco user Allergies morphine Allergy (Unknown, Verified 08/17/25 14:34) itchy Do you need a note to return to daycare/school/sports/work: No HPI HPI Comments History of Present Illness Details History of Present Illness - The patient is a 69-year-old female pr esenting with rib pain following a mechanical fall a few days ago. - The fall occurred at night while at [facility], with no associated loss of consciousness, head strike, dizziness, or chest pain. - The patient reports pain on the left s nakia, exacerbated by deep breathing, with no visible bruising or discoloration. - The patient denies any shortness of br eath or use of blood thinners. - The patient has a history of similar i ncidents but no prior fractures confirmed. Physical Exam General: Cooperative, healthy appearing, comfortable, no acute distress and well developed Orientation: Patient oriented x3 Limitations: No limitations Head: Normal to inspection Ears: Hearing grossly normal bilaterally Face and sinus: Normal facial exam Eyes: Appearance normal, both eyes and all related structures Neck: Normal visual inspection, full ROM Chest: TTP T8-T9 anterior midclaviclular line left side Respiratory: Normal respiratory effort Skin: No rashes or lesions noted, no skin changes Neuro: Patient oriented x3, gait normal Extremities: moving all extremities normally Review of Systems - General: Denies loss of consciousness, dizziness, or chest pain. - Respiratory: Reports pain on deep beckie thing, denies shortness of breath. All systems reviewed and are unremarkable except as noted in HPI and below [facility] Medical History (Updated 08/17/25 @ 14:57 by Sophia Yanez PA-C) Frequent loose stools COPD (chronic obstructive pulmonary disease) with emphysema Postprandial epigastric pain Impaired fasting glucose Epigastric pain Cigarette smoker Osteoarthritis Generalized anxiety disorder Not ready to quit smoking Osteopenia of left femoral neck Environmental and seasonal allergies Dyslipidemia Essential hypertension Surgical History Hx of colonoscopy History of appendectomy History of section History of rotator cuff surgery Family History Father History of heart attack Substance use disorder Mother Brain cancer Brother Lung cancer Maternal Uncle Stomach cancer Brother No problems noted. Brother No problems noted. Brother Substance use disorder Son No problems noted. Daughter No problems noted. Maternal Aunt Colon cancer Social History Housing: House Alcohol intake: current Patient Tobacco Use Status: Current everyday Tobacco user Tobacco use type: Cigarette Cigarettes Per Day: 10 e-Cigarette/Vaping Use: Never Used Second Hand Smoke Exposure: No service: No Current occupational status: retired Cognitive needs: No Hearing needs: No Vision needs: No Physical Exam Vital Signs: Last Vital Signs Temp 98.0 F 08/17/25 14:30 Pulse 79 08/17/25 14:30 BP 128/64 08/17/25 14:30 Pulse Ox 97 08/17/25 14:30 Oxygen Delivery Method Room Air 08/17/25 14:30 BMI result Body Mass Index 29.8 Assessment & Plan Assessment & Plan (1) Left-sided chest wall pain: Code(s): R07.89 - Other chest pain Plan: Plan Patient was informed and verbally consented to the use of an ambient scribe for clinic note documentation during this visit. Rib Contusion vs fracture - Plan to obtain a chest X-ray to rule out rib fracture. - Recommend use of ice and ibuprofen, lidocaine patch for pain management. - Advise against the use of heat unless it provides relief. - Monitor for any acute shortness of breath or inability to breathe, with instructions to seek emergency care if these occur. (2) Fall against object: Code(s): W18.00XA - Striking against unspecified object with subsequent fall, initial encounter Plan: as above Orders: Orders XR ribs LT 2V Today R07.89 - Other chest pain, W18.00XA - Striking against unspecified object with subsequent fall, initial encounter Coding Level of Care Code Est Pt Level 4 (01798) Diagnoses Left-sided chest wall pain R07.89 Fall against object W18.00XA
== END 2025-08-17 15:04 | disposition home or self-care (01) ==
PROVIDERS: PCP Internal Medicine; Visit Provider Physician Assistant
DX: R07.89 Other chest pain (principal); W18.00XA Striking against unspecified object with subsequent fall, initial encounter

== ENCOUNTER → 2025-08-17 15:05 | Outpatient (BNV) | payer MEDICARE, OTHER, SELFPAY | PROVIDERS: PCP Internal Medicine; Visit Provider Radiology Diagnostic Radiology | DX: R07.89 Other chest pain (principal) | CPT/HCPCS: 71101 ==

== ENCOUNTER → 2025-10-07 11:20 | Outpatient (BNV) | payer MEDICARE, OTHER, SELFPAY | PROVIDERS: PCP Internal Medicine; Visit Provider Radiology Diagnostic Radiology | DX: K76.9 Liver disease, unspecified (principal) | CPT/HCPCS: 74183 ==

== ENCOUNTER 2025-10-07 11:23 | Outpatient (REF) | payer MEDICARE, OTHER, SELFPAY ==
--- NOTE | ~2025-10-07 | MR_ITS ---
EXAMINATION: MR ABDOMEN WITHOUT THEN WITH IV CONTRAST HISTORY: K76.9 - Liver disease, unspecified COMPARISON: Relation is made with an abdominal ultrasound dated 08/04/2025. TECHNIQUE: Axial in and out of phase T1-weighted gradient echo, axial diffusion weighted, and axial and coronal HASTE T2 with fat saturation images were obtained through the abdomen. Subsequently, fat suppressed axial and coronal T1-weighted images were obtained after the intravenous administration of 6 mL Gadavist. FINDINGS: Liver: There is no loss of signal intensity in the liver on opposed phase imaging to suggest steatosis. There is a 6 mm cyst in segment II. A 4 mm T2 hyperintense focus is noted in segment IV which appears to enhance. This may represent a tiny hemangioma, but is too small to accurately characterize. Additional scattered punctate cysts are noted in the liver. The hepatic and portal veins are patent. There is no intrahepatic biliary dilatation. Gallbladder/biliary tree: The gallbladder is contracted, limiting evaluation. There is a 6 mm enhancing focus along the gallbladder wall which may represent a polyp. Additional T2 hypointensities may represent calculi. Evaluation is limited by gallbladder contraction. The common bile duct is normal in caliber. No intraluminal filling defects are identified to suggest choledocholithiasis. Spleen: The spleen is unremarkable. Pancreas: The pancreas is unremarkable. There is no enhancing pancreatic mass. The pancreatic duct is normal in caliber. Adrenals: The adrenal glands are unremarkable. Kidneys: The right kidney is unremarkable. There is a 10 mm cyst at the upper pole of the left kidney.. There is no hydronephrosis. Lymph nodes: There is a 2.1 cm periportal lymph node. Additional smaller nodes are also noted. Fluid: There is no ascites in the upper abdomen. Visualized bowel: The visualized small and large bowel loops are unremarkable in appearance. Visualized bones: The visualized bones demonstrate normal marrow signal intensity. MR/MR abdomen wo/w con IMPRESSION: 1. 4 mm enhancing focus in segment IV of the liver which is too small to accurately characterize. 2. Contracted gallbladder. Probable 6 mm polyp. 3. As these areas are seen on ultrasound, ultrasound follow-up is recommended. Electronically signed by: Peng King MD 10/07/2025 12:50 PM [facility]
== END 2025-10-07 11:24 | disposition home or self-care (01) ==
LOC: HO.MRI 11:23
PROVIDERS: PCP Internal Medicine; Visit Provider Nurse Practitioner Family
DX: K76.9 Liver disease, unspecified (principal); K82.4 Cholesterolosis of gallbladder
CPT/HCPCS: 74183; A9585

== ENCOUNTER 2025-10-17 10:45 | Outpatient (REF) | payer MEDICARE, OTHER, SELFPAY ==
[2025-10-17 12:52] LABS: E. coli EAEC Not Detected (Not Detect.); E. coli EPEC Not Detected (Not Detect.); E. coli ETEC Not Detected (Not Detect.); E. coli STEC Not Detected (Not Detect.); Shigella sp./EIEC Not Detected (Not Detect.)
== END 2025-10-17 10:46 | disposition home or self-care (01) ==
LOC: HO.LNP 10:45
PROVIDERS: Visit Provider Nurse Practitioner Family
DX: R19.7 Diarrhea, unspecified (principal)
CPT/HCPCS: 87507

== ENCOUNTER 2025-10-25 10:35 | Outpatient (REF) | payer MEDICARE, OTHER, SELFPAY ==
[2025-10-25 12:55] LABS: CDiff Gene PCR NEGATIVE (Negative)
== END 2025-10-25 10:36 | disposition home or self-care (01) ==
LOC: HO.LNP 10:35
PROVIDERS: Visit Provider Nurse Practitioner Family
DX: R19.7 Diarrhea, unspecified (principal)
CPT/HCPCS: 87493

== ENCOUNTER 2025-11-04 10:57 | Outpatient (REF) | payer MEDICARE, OTHER, SELFPAY ==
[2025-11-04 14:06] LABS: Anion Gap 13 (12-20); Blood Urea Nitrogen 13 mg/dL (9-16); Calcium 9.6 mg/dL (8.4-10.2); Carbon Dioxide 28 mmol/L (22-29); Chloride 107 mmol/L (96-108); Estimated Glomerular Filt Rate > 60; Potassium 3.9 mmol/L (3.3-5.1); Sodium 144 mmol/L (135-145)
== END 2025-11-04 10:58 | disposition home or self-care (01) ==
LOC: HO.HMGCLDS 10:57
PROVIDERS: PCP Internal Medicine; Visit Provider Nurse Practitioner Family
DX: K82.4 Cholesterolosis of gallbladder (principal); K76.9 Liver disease, unspecified
CPT/HCPCS: 36415; 80048

== ENCOUNTER 2025-11-16 11:01 | Outpatient (AMB) | payer MEDICARE, OTHER, SELFPAY ==
--- NOTE | 2025-11-16 11:04 | A.OFFVIS_ITS ---
Vital Signs 11/16/25 11:08 Height 4 ft 8 in Weight 134 lb BMI 30.0 BP 170/78 H Blood Pressure Location Lt brachial Position Sitting Pulse 76 Intake Visit Reasons: Follow up 3 months Intake Note: Patient is seen in office for lab and MRI results, following for epigastric pain. 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 Accompanied by: Self / Same As Patient Allergies morphine Allergy (Unknown, Verified 11/16/25 11:09) itchy Medication List - Last Reconciled 11/16/25 by Mara Gutierrez CNP budesonide-formoterol 160-4.5 mcg/actuation (Symbicort) 2 puffs inhalation Q12H calcium carbonate (Calcium 600) 600 mg PO BID cetirizine 10 mg PO DAILY PRN cholecalciferol (vitamin D3) 50 mcg PO DAILY citalopram 20 mg PO DAILY lorazepam 0.5 mg PO DAILY PRN losartan 50 mg PO DAILY omeprazole 20 mg PO DAILY rosuvastatin 5 mg PO Q2D HPI HPI Follow up 3 months: Details: Patient is a 69-year-old female with PMH of COPD, HTN, HLD, prediabetes. Follow-up visit regarding epigastric pain that started in August. An ultrasound at that time revealed a liver lesion, and she also reported diarrhea. A subsequent MRI confirmed the liver lesion is a benign hemangioma, which does not require surveillance imaging. Imaging also identified a 6 mm polyp on her gallbladder. Stool testing collected on 10/17/2025 was positive for norovirus and showed a few stool leukocytes, with a normal calprotectin of 22. The acute diarrhea has resolved, but she reports a long-standing history of intermittent mushy stools. The epigastric pain is intermittent, occurring in the epigastric region, and she was previously prescribed omeprazole for possible reflux-related symptoms. [facility] Medical History (Updated 11/16/25 @ 11:44 by Mara Gutierrez CNP) Colon cancer screening Rib pain on left side Renal cyst Epigastric pain Gallbladder polyp Liver lesion, left lobe Frequent loose stools COPD (chronic obstructive pulmonary disease) with emphysema Postprandial epigastric pain Impaired fasting glucose Cigarette smoker Osteoarthritis Generalized anxiety disorder Not ready to quit smoking Osteopenia of left femoral neck Environmental and seasonal allergies Dyslipidemia Essential hypertension Surgical History Hx of colonoscopy History of appendectomy History of section History of rotator cuff surgery Family History Father History of heart attack Substance use disorder Mother Brain cancer Brother Lung cancer Maternal Uncle Stomach cancer Brother No problems noted. Brother No problems noted. Brother Substance use disorder Son No problems noted. Daughter No problems noted. Maternal Aunt Colon cancer Social History Housing: House Alcohol intake: current Patient Tobacco Use Status: Current everyday Tobacco user Tobacco use type: Cigarette Cigarettes Per Day: 10 e-Cigarette/Vaping Use: Never Used Second Hand Smoke Exposure: No service: No Current occupational status: retired Cognitive needs: No Hearing needs: No Vision needs: No Review of Systems Const Reports as per HPI ENT Reports as per HPI Card Reports as per HPI Resp Reports as per HPI GI Reports as per HPI Reports as per HPI Physical Exam Vital Signs: Last Vital Signs Pulse 76 11/16/25 11:08 BP 170/78 H 11/16/25 11:08 BMI result Body Mass Index 30.0 Const General: healthy appearing, no acute distress and well developed Nutritional Appearance: average body habitus Orientation/consciousness: patient oriented x3 HEENT Head: Yes normal to inspection, Yes normocephalic and Yes atraumatic Face and sinus: Yes normal facial exam Eyes General: appearance normal, both eyes and all related structures Neck Neck: Yes normal visual inspection Resp Effort & Inspection: normal respiratory effort, able to speak in complete sentences, no tracheal deviation and symmetric chest movement Cardio Jugular venous distension: no JVD Neuro General: patient oriented x3 Gait exam (Neuro): Normal gait present Psych Appearance: grossly normal Mental Status: mental status grossly normal Speech and movement: Normal speech and movement present Affect: normal affect Attitude: cooperative Thought process: Normal thought process present Thought content: Normal thought content present Insight: Good insight present (Psych) Judgement: Good judgement present (Psych) Results Reviewed Results Reviewed: Date of Service: 10/07/25 Procedure(s): MR abdomen wo/w con Accession Number(s): [id number] cc: Rosina Martínez MD; Mara Gutierrez CNP~ Reason for Exam: K76.9 - Liver disease, unspecified EXAMINATION: MR ABDOMEN WITHOUT THEN WITH IV CONTRAST HISTORY: K76.9 - Liver disease, unspecified COMPARISON: Relation is made with an abdominal ultrasound dated 08/04/2025. TECHNIQUE: Axial in and out of phase T1-weighted gradient echo, axial diffusion weighted, and axial and coronal HASTE T2 with fat saturation images were obtained through the abdomen. Subsequently, fat suppressed axial and coronal T1-weighted images were obtained after the intravenous administration of 6 mL Gadavist. FINDINGS: Liver: There is no loss of signal intensity in the liver on opposed phase imaging to suggest steatosis. There is a 6 mm cyst in segment II. A 4 mm T2 hyperintense focus is noted in segment IV which appears to enhance. This may represent a tiny hemangioma, but is too small to accurately characterize. Additional scattered punctate cysts are noted in the liver. The hepatic and portal veins are patent. There is no intrahepatic biliary dilatation. Gallbladder/biliary tree: The gallbladder is contracted, limiting evaluation. There is a 6 mm enhancing focus along the gallbladder wall which may represent a polyp. Additional T2 hypointensities may represent calculi. Evaluation is limited by gallbladder contraction. The common bile duct is normal in caliber. No intraluminal filling defects are identified to suggest choledocholithiasis. Spleen: The spleen is unremarkable. Pancreas: The pancreas is unremarkable. There is no enhancing pancreatic mass. The pancreatic duct is normal in caliber. Adrenals: The adrenal glands are unremarkable. Kidneys: The right kidney is unremarkable. There is a 10 mm cyst at the upper pole of the left kidney.. There is no hydronephrosis. Lymph nodes: There is a 2.1 cm periportal lymph node. Additional smaller nodes are also noted. Fluid: There is no ascites in the upper abdomen. Visualized bowel: The visualized small and large bowel loops are unremarkable in appearance. Visualized bones: The visualized bones demonstrate normal marrow signal intensity. MR/MR abdomen wo/w con IMPRESSION: 1. 4 mm enhancing focus in segment IV of the liver which is too small to accurately characterize. 2. Contracted gallbladder. Probable 6 mm polyp. 3. As these areas are seen on ultrasound, ultrasound follow-up is recommended. Assessment & Plan Assessment & Plan (1) Liver lesion, left lobe: Code(s): K76.9 - Liver disease, unspecified Category: Medical Plan: MRI confirmed the liver lesion is a benign hemangioma. - Given the small size and benign nature, no further surveillance imaging is indicated. (2) Gallbladder polyp: Code(s): K82.4 - Cholesterolosis of gallbladder Category: Medical Plan: A 6 mm gallbladder polyp was identified on imaging. - A referral will be placed to General Surgery for a consultation to discuss management options. - The patient's epigastric pain may be related to this finding. (3) Epigastric pain: Code(s): R10.13 - Epigastric pain Category: Medical Plan: The patient will continue omeprazole for her intermittent epigastric pain pending consultation with general surgery. -diet and activity as tolerated, avoid triggers. (4) Frequent loose stools: Code(s): R19.7 - Diarrhea, unspecified Category: Medical Qualifiers: Diarrhea type: unspecified type Qualified Code(s): R19.7 - Diarrhea, unspecified Plan: For long-standing soft stools, increasing dietary fiber is recommended. - She may consider starting a third-constitution party tested probiotic for gut health. (5) Colon cancer screening: Code(s): Z12.11 - Encounter for screening for malignant neoplasm of colon Category: Medical Plan: A screening colonoscopy is scheduled for December 27. - A prescription for a full volume MiraLAX split-prep with Gatorade (64 ounces) and four laxative tablets will be sent to her pharmacy. - Detailed prep instructions were provided, including a clear liquid diet on December 26, avoidance of red, blue, or purple liquids, and NPO status for four hours prior to the procedure. - The patient was advised to take her losartan on the morning of the procedure but can hold other non-essential medications. - A follow-up visit is scheduled for January 10 to review the results. Plan Follow-up as scheduled Time: I spent a total of 30 minutes on the date of encounter which includes: Preparing to see the patient (reviewed previous documentation, test results and medical history) Performing a medically appropriate exam and/or evaluation Ordering medications, tests, and procedures Documenting clinical information in the health record Orders: Referrals General Surgery Referral K82.4 - Cholesterolosis of gallbladder Coding Level of Care Code Established Pt Est Pt Level 4 (70983) Patient Type Established Diagnoses Liver lesion, left lobe K76.9 Gallbladder polyp K82.4 Epigastric pain R10.13 Diarrhea, unspecified type R19.7 Diarrhea type: unspecified type Colon cancer screening Z12.11
[2025-11-16 11:08] VITALS: BP 170/78; PULSE 76
== END 2025-11-16 11:41 | disposition home or self-care (01) ==
LOC: HO.HGI 11:02
PROVIDERS: PCP Internal Medicine; Visit Provider Nurse Practitioner Family
DX: K76.9 Liver disease, unspecified (principal); K82.4 Cholesterolosis of gallbladder; R10.13 Epigastric pain; R19.7 Diarrhea, unspecified
CPT/HCPCS: 99214

== ENCOUNTER → 2025-11-16 11:01 | Outpatient (BNVA) | payer MEDICARE, OTHER, SELFPAY | PROVIDERS: PCP Internal Medicine; Visit Provider Nurse Practitioner Family | DX: Z01.818 Encounter for other preprocedural examination (principal); K76.9 Liver disease, unspecified; K82.4 Cholesterolosis of gallbladder; R10.13 Epigastric pain; R19.7 Diarrhea, unspecified | CPT/HCPCS: 99212 ==

== ENCOUNTER 2025-11-17 11:18 | Outpatient (AMB) | payer MEDICARE, OTHER, SELFPAY ==
[2025-11-17 11:21] VITALS: BP 132/65; PULSE 73; BMI 29.8
--- NOTE | 2025-11-17 11:21 | A.OFFVIS_ITS ---
Vital Signs 11/17/25 11:21 Height 4 ft 8 in Weight 133 lb BMI 29.8 BP 132/65 Blood Pressure Location Rt brachial Position Sitting Pulse 73 Intake Visit Reasons: gallbladder poylp Intake Note: Patient referred by Mara Gutierrez NP for evaluation and treatment of gallbladder polyp. Patient c/o: denies abdominal pain. Once in a while nausea. 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 Accompanied by: Romeo boyfriend Allergies morphine Allergy (Unknown, Verified 11/17/25 11:27) itchy Medication List - Last Reconciled 11/17/25 by Paul Ann MD budesonide-formoterol 160-4.5 mcg/actuation (Symbicort) 2 puffs inhalation Q12H calcium carbonate (Calcium 600) 600 mg PO BID cetirizine 10 mg PO DAILY PRN cholecalciferol (vitamin D3) 50 mcg PO DAILY citalopram 20 mg PO DAILY lorazepam 0.5 mg PO DAILY PRN losartan 50 mg PO DAILY omeprazole 20 mg PO DAILY rosuvastatin 5 mg PO Q2D HPI Comments Details: 69-year-old lady presents with a history of vague epigastric abdominal pain this typically in the postprandial state. It is sometimes in the company of diarrhea. Investigations were indicative of an uncomplicated 8 mm polyp in her gallbladder and she is here for consideration of cholecystectomy. [facility] [place] Medical History Colon cancer screening Rib pain on left side Renal cyst Epigastric pain Gallbladder polyp Liver lesion, left lobe Frequent loose stools COPD (chronic obstructive pulmonary disease) with emphysema Postprandial epigastric pain Impaired fasting glucose Cigarette smoker Osteoarthritis Generalized anxiety disorder Not ready to quit smoking Osteopenia of left femoral neck Environmental and seasonal allergies Dyslipidemia Essential hypertension Surgical History Hx of colonoscopy History of appendectomy History of section History of rotator cuff surgery Family History Father History of heart attack Substance use disorder Mother Brain cancer Brother Lung cancer Maternal Uncle Stomach cancer Brother No problems noted. Brother No problems noted. Brother Substance use disorder Son No problems noted. Daughter No problems noted. Maternal Aunt Colon cancer Social History Housing: House Alcohol intake: current Patient Tobacco Use Status: Current everyday Tobacco user Tobacco use type: Cigarette Cigarettes Per Day: 10 e-Cigarette/Vaping Use: Never Used Second Hand Smoke Exposure: No service: No Current occupational status: retired Cognitive needs: No Hearing needs: No Vision needs: No Review of Systems Const All systems reviewed & are unremarkable except as noted in HPI and below Physical Exam Vital Signs: Last Vital Signs Pulse 73 11/17/25 11:21 BP 132/65 11/17/25 11:21 BMI result Body Mass Index 29.8 HEENT Head: Yes normal to inspection, Yes normocephalic and Yes atraumatic Ears: hearing grossly normal bilaterally General nose exam: Normal external nose present Face and sinus: Yes normal facial exam Eyes General: appearance normal, both eyes and all related structures Sclerae: sclerae normal Pupils: Equal, round and reactive pupils present EOM: EOMs intact bilaterally Neck Neck: Yes normal visual inspection Chest Chest palpation & inspection: normal inspection of the chest Resp Effort & Inspection: normal respiratory effort, able to speak in complete sentences and abnormal respiratory pattern Cardio Rate: regular rate Rhythm: regular rhythm GI Other: Soft obese nontender nondistended I can not appreciate any evidence of hepatosplenomegaly or masses or hernias. Back/Spine/Pelvis Thoracic/Lumbar Spine: thoracic and lumbar spine normal to inspection Neuro Cranial nerves: Yes Equal, round and reactive pupils present Assessment & Plan Assessment & Plan (1) Gallbladder polyp: Code(s): K82.4 - Cholesterolosis of gallbladder Category: Medical Plan: I told the patient that cholecystectomy is reasonable. I explained to her in detail the nature of laparoscopic possible open cholecystectomy and also reviewed with her in detail the risks that are involved with such an endeavor. These include but are not limited to the risk of bleeding the risks infection the risk of damage to surrounding structures risk of conversion to an open procedure the risk of cystic duct stump leakage the risk of chronic pain the risk of chronic nausea and vomiting the risk of chronic diarrhea and the risks that the surgery might not solve her current problems with abdominal discomfort were all reviewed with her in detail. She told me that she understood. She told me that she understood and accepted the risks she described as inherent dissection operation and lastly she indicated that despite the risks she still wished to proceed with surgery. Coding Level of Care Code New Pt Level 3 (86192) Diagnoses Gallbladder polyp K82.4 Time Spent (min) 30 Comment Record review patient visit and coordination of care time
== END 2025-11-17 11:54 | disposition home or self-care (01) ==
LOC: HO.HGS 11:19
PROVIDERS: PCP Internal Medicine; Visit Provider Surgery
DX: K82.4 Cholesterolosis of gallbladder (principal)
CPT/HCPCS: 99204

== ENCOUNTER → 2025-11-17 11:18 | Outpatient (BNVA) | payer MEDICARE, OTHER, SELFPAY | PROVIDERS: PCP Internal Medicine; Visit Provider Surgery | DX: K82.4 Cholesterolosis of gallbladder (principal) | CPT/HCPCS: 99202 ==